=== PATIENT | male | born 1995 | race Hispanic/Latino ===

== ENCOUNTER 2018-06-10 14:03 | Emergency (ER) | payer BC ==
[2018-06-10] MEDS ORDERED: ONDANSETRON 4 MG/2 ML VIAL ONE (14:51)
[2018-06-10] MEDS ORDERED: NA CHLORIDE 0.9% 1,000 ML ONE (14:51)
[2018-06-10 14:56] LABS: Urine Blood 2+ (NEG); Urine Glucose NEGATIVE (NEG); Urine Protein 1+ (NEG); Urine Specific Gravity 1.025 (1.005-1.030); Urine pH 5.5 (5.0-7.0)
[2018-06-10 15:13] LABS: Absolute Lymphocytes (CBC) 0.8 K/uL (0.7-4.9); Absolute Monocytes 0.8 K/uL (0.1-1.3); Absolute Neutrophil 4.9 K/uL (1.8-8.0); Basophils % 0.5 % (0-1.3); Eosinophils % 0.1 % (0-4.4); Hematocrit 38.4 % (39.6-49.0); Lymphocytes % 12.2 % (15.3-44.8); MCH 27.7 pg (27.0-35.0); MCV 82.8 fL (80-100); MPV 8.7 fL (7.6-11.3); Monocytes % 11.9 % (3.3-12.3); RBC Red Blood Cell Count 4.64 M/uL (4.33-5.43)
[2018-06-10 15:15] LABS: Urine Bacteria <20 /HPF (NONE SEEN); Urine Culture Reflex Order REFLEXED; Urine RBC <5 /HPF (NONE SEEN)
[2018-06-10 15:21] LABS: Albumin 3.5 g/dL (3.4-5.0); Bilirubin Direct 0.1 mg/dL (0-0.2); Bilirubin Total 0.3 mg/dL (0.2-1.0); Potassium 3.2 mmol/L (3.5-5.1); Protein, Total 6.9 g/dL (6.4-8.2)
--- NOTE | 2018-06-10 15:37 | RAD REPORT ---
EXAM DESCRIPTION: CT - Abdomen Pelvis W Contrast - 06/10/2018 3:17 pm CLINICAL HISTORY: Abdominal pain with nausea. COMPARISON: 2016 TECHNIQUE: Computed axial tomography of the abdomen pelvis was obtained. 100 cc Isovue-300 was admin istered intravenously. Oral contrast was not requested which limits evaluation of bowel. All CT scans are performed using dose optimization technique as appropriate and may include automated exposure control or mA/KV adjustment according to patient size. FINDINGS: The liver, spleen, pancreas, adrenal and kidneys appear unremarkable. There is no evidence of diverticulitis. An abnormal appendix is not visualized Fluid is present within nondilated small bowel IMPRESSION: Fluid within nondilated small bowel is nonspecific but may indicate an enteritis No acute abnormality is displayed.
--- NOTE | 2018-06-10 16:27 | ER ---
Nurse's Notes [facility] Name: Bobo Monroe Age: 23 yrs Sex: Male : 1995 Arrival Date: 06/10/2018 Time: 14:07 Bed 13 Private MD: Diagnosis: Vomiting;Other abdominal pain;Urinary tract infection, site not specified Presentation: 06/10 14:08 Presenting complaint: Patient states: "Yesterday I threw up, lately my body has been aj1 getting weakened. I had a fever (100.6) yesterday. I haven't eaten anything" Reports abdominal pain, headache. Patient states that he has not thrown up today. States that his step-daughter has recently been ill with a stomach bug. Transition of care: patient was not received from another setting of care. Onset of symptoms was June 09, 2018. Risk Assessment: Do you want to hurt yourself or someone else? Patient reports no desire to harm self or others. Initial Sepsis Screen: Does the patient meet any 2 criteria? No. Patient's initial sepsis screen is negative. Does the patient have a suspected source of infection? No. Patient's initial sepsis screen is negative. Care prior to arrival: None. 14:08 Method Of Arrival: Ambulatory aj1 14:08 Acuity: BAKARI 3 aj1 Triage Assessment: 14:13 General: Appears in no apparent distress. comfortable, Behavior is calm, cooperative, aj1 appropriate for age. Pain: Complains of pain in umbilical area Pain currently is 6 out of 10 on a pain scale. at worst was 10 out of 10 on a pain scale. Is intermittent. Neuro: Level of Consciousness is awake, alert, obeys commands. Cardiovascular: Patient's skin is warm and dry. Respiratory: Airway is patent Respiratory effort is even, unlabored, Respiratory pattern is regular, symmetrical. GI: Abdomen is flat, non-distended, Reports lower abdominal pain, nausea, vomiting. Derm: Skin is pink, warm \\T\\ dry. normal. Historical: - Allergies: 14:13 No Known Allergies; aj1 - Home Meds: 14:13 None [Active]; aj1 - PMHx: 14:13 None; aj1 - PSHx: 14:13 None; aj1 - Immunization history:: Flu vaccine is not up to date. - Social history:: Smoking status: Patient uses tobacco products, denies chronic smoking, but will smoke occasionally. - Ebola Screening: : Patient denies travel to an Ebola-affected area in the 21 days before illness onset. Screenin:32 Abuse screen: Denies threats or abuse. Nutritional screening: No deficits noted. tw2 Nutritional screening: No deficits noted. Tuberculosis screening: No symptoms or risk factors identified. Fall Risk None identified. Assessment: 14:30 General: Appears in no apparent distress. slender, Behavior is calm, cooperative. Pain: tw2 Complains of pain in abdomen. Neuro: Level of Consciousness is awake, alert, obeys commands, Oriented to person, place, time, situation. Cardiovascular: Denies chest pain, shortness of breath, Heart tones S1 S2 Capillary refill < 3 seconds Patient's skin is warm and dry. Respiratory: Airway is patent Respiratory effort is even, unlabored, Respiratory pattern is regular, symmetrical, Breath sounds are clear bilaterally. GI: Abdomen is flat, Bowel sounds present X 4 quads. Abd is soft X 4 quads Reports nausea, vomiting. : No signs and/or symptoms were reported regarding the genitourinary system. EENT: No signs and/or symptoms were reported regarding the EENT system. Derm: Skin is intact, is healthy with good turgor, Skin temperature is warm. Musculoskeletal: Circulation, motion, and sensation intact. Capillary refill < 3 seconds, Range of motion: intact in all extremities. 15:32 Reassessment: Patient appears in no apparent distress at this time. No changes from tw2 previously documented assessment. Patient and/or family updated on plan of care and expected duration. Pain level reassessed. Patient is alert, oriented x 3, equal unlabored respirations, skin warm/dry/pink. 16:16 Reassessment: Patient appears in no apparent distress at this time. No changes from tw2 previously documented assessment. Patient and/or family updated on plan of care and expected duration. Pain level reassessed. Patient is alert, oriented x 3, equal unlabored respirations, skin warm/dry/pink. 16:39 Reassessment: Patient appears in no apparent distress at this time. Patient and/or tw2 family updated on plan of care and expected duration. Pain level reassessed. Patient is alert, oriented x 3, equal unlabored respirations, skin warm/dry/pink. Patient states feeling better. Patient states symptoms have improved. Vital Signs: 14:13 BP 129 / 84; Pulse 84; Resp 18; Temp 99.6(TE); Pulse Ox 98% on R/A; Height 5 ft. 8 in. aj1 (172.72 cm) (R); Pain 6/10; 15:32 BP 108 / 56; Pulse 70; Resp 17; Pulse Ox 98% on R/A; tw2 16:16 BP 109 / 42; Pulse 61; Resp 17; Pulse Ox 100% on R/A; tw2 ED Course: 14:07 Patient arrived in ED. rg4 14:12 Triage completed. aj1 14:13 Arm band placed on Patient placed in an exam room. aj1 14:15 Elysia Velazquez, NIHARIKA is Primary Nurse. tw2 14:22 Jung Lomeli PA is PHCP. jmm 14:22 Mohit Almodovar MD is Attending Physician. jmm 14:31 Bed in low position. Call light in reach. Pulse ox on. NIBP on. tw2 14:50 No provider procedures requiring assistance completed. Inserted saline lock: 20 gauge tw2 in right antecubital area, using aseptic technique. Blood collected. 14:58 Urine Microscopic Only Sent. tw2 15:17 CT Abd/Pelvis - W/Contrast In Process Unspecified. EDMS 15:22 CT completed. Patient moved to CT via wheelchair. Patient moved back from [place]. [place] 16:39 IV discontinued, intact, bleeding controlled, No redness/swelling at site. Pressure tw2 dressing applied. Administered Medications: 14:50 Drug: Zofran 4 mg Route: IVP; Site: right antecubital; tw2 15:33 Follow up: Response: No adverse reaction tw2 14:57 Drug: NS 0.9% 1000 ml Route: IV; Rate: 1 bolus; Site: right antecubital; tw2 16:27 Follow up: Response: No adverse reaction; IV Status: Completed infusion; IV Intake: tw2 1000ml Intake: 16:27 IV: 1000ml; Total: 1000ml. tw2 Outcome: 16:26 Discharge ordered by . jmm 16:38 Discharged to home ambulatory, with friend. tw2 16:38 Condition: stable 16:38 Discharge instructions given to patient, friend, Instructed on discharge instructions, follow up and referral plans. medication usage, Demonstrated understanding of instructions, follow-up care, medications, Prescriptions given X 2. 16:39 Patient left the ED. tw2 Signatures: Dispatcher [employer] EDRegi Foy RN RN aj1 Jung Lomeli PA PA jmm Wise, Tara, RN RN tw2 Christa Shaikh4 Lauro Quintana
--- NOTE | 2018-06-10 16:27 | EDPHYS ---
Physician Documentation [facility] Name: Bobo Monroe Age: 23 yrs Sex: Male : 1995 Arrival Date: 06/10/2018 Time: 14:07 Bed 13 Private MD: ED Physician Mohit Almodovar HPI: 06/10 14:42 This 23 yrs old Male presents to ER via Ambulatory with complaints of TROUBLE jmm SLEEPING, Abdominal Pain. 14:42 The patient presents with abdominal pain in the periumbilical area. Onset: The jmm symptoms/episode began/occurred gradually, 2 day(s) ago. The symptoms do not radiate. Associated signs and symptoms: Pertinent positives: nausea and vomiting. The symptoms are described as achy. This is a 23 year old male with no chronic medical conditions that presents to the ED with abdominal pain, vomiting beginning 2 days ago. Patient states his step daughter has similar symptoms. Denies recent abx use, recent travel. . Historical: - Allergies: 14:13 No Known Allergies; aj1 - Home Meds: 14:13 None [Active]; aj1 - PMHx: 14:13 None; aj1 - PSHx: 14:13 None; aj1 - Immunization history:: Flu vaccine is not up to date. - Social history:: Smoking status: Patient uses tobacco products, denies chronic smoking, but will smoke occasionally. - Ebola Screening: : Patient denies travel to an Ebola-affected area in the 21 days before illness onset. ROS: 14:42 Constitutional: Negative for fever, chills, and weight loss, Cardiovascular: Negative jmm for chest pain, palpitations, and edema, Respiratory: Negative for shortness of breath, cough, wheezing, and pleuritic chest pain. 14:42 MS/Extremity: Negative for injury and deformity, Skin: Negative for injury, rash, and discoloration, Neuro: Negative for headache, weakness, numbness, tingling, and seizure. 14:42 Abdomen/GI: Positive for abdominal pain, nausea and vomiting. 14:42 Back: Negative for pain at rest, pain with movement. 14:42 All other systems are negative. Exam: 14:42 Head/Face: atraumatic. Chest/axilla: Normal chest wall appearance and motion. jmm Cardiovascular: Regular rate and rhythm. No edema appreciated Respiratory: Normal respirations, no respiratory distress appreciated 14:42 Constitutional: The patient appears in no acute distress, alert, awake. 14:42 Abdomen/GI: Inspection: abdomen appears normal, Bowel sounds: normal, Palpation: soft, mild abdominal tenderness, in the umbilical area. 14:42 Musculoskeletal/extremity: ROM: no acute changes, intact in all extremities. 14:42 Skin: Appearance: Color: normal in color, Temperature: 14:42 Neuro: Orientation: is normal, Mentation: is normal, Memory: is normal. 14:42 Psych: Behavior/mood is pleasant, cooperative. Vital Signs: 14:13 BP 129 / 84; Pulse 84; Resp 18; Temp 99.6(TE); Pulse Ox 98% on R/A; Height 5 ft. 8 in. aj1 (172.72 cm) (R); Pain 6/10; 15:32 BP 108 / 56; Pulse 70; Resp 17; Pulse Ox 98% on R/A; tw2 16:16 BP 109 / 42; Pulse 61; Resp 17; Pulse Ox 100% on R/A; tw2 MDM: 14:42 [facility] medically screened. [facility] 16:24 Data reviewed: vital signs, nurses notes, radiologic studies, plain films. Data jm reviewed: radiologic studies, CT scan. Counseling: I had a detailed discussion with the patient and/or guardian regarding: the historical points, exam findings, and any diagnostic results supporting the discharge/admit diagnosis, lab results, radiology results. Response to treatment: the patient's symptoms have markedly improved after treatment. ED course: Patient tolerates PO in the ED. Patient given early appendicitis return precautions. Patient understood and agrees with the plan of care. . 06/10 14:37 Order name: Urine Dipstick--Ancillary (enter results); Complete Time: 15:01 06/10 14:43 Order name: Amylase, Serum; Complete Time: 15:24 [facility] 06/10 14:43 Order name: Basic Metabolic Panel; Complete Time: 15:24 [facility] 06/10 14:43 Order name: CBC with Diff; Complete Time: 15:24 [facility] 06/10 14:43 Order name: Creatinine for Radiology; Complete Time: 15:24 [facility] 06/10 14:43 Order name: Hepatic Function; Complete Time: 15:24 [facility] 06/10 14:43 Order name: Lipase; Complete Time: 15:24 [facility] 06/10 14:43 Order name: Urine Microscopic Only; Complete Time: 15:24 [facility] 06/10 14:43 Order name: IV Saline Lock; Complete Time: 14:58 [facility] 06/10 14:43 Order name: Labs collected and sent; Complete Time: 14:58 [facility] 06/10 14:43 Order name: CT Abd/Pelvis - W/Contrast; Complete Time: 15:44 [facility] 06/10 15:17 Order name: Urine Culture [facility] 06/10 14:43 Order name: Urine Dipstick-Ancillary (obtain specimen); Complete Time: 14:46 [facility] Administered Medications: 14:50 Drug: Zofran 4 mg Route: IVP; Site: right antecubital; tw2 15:33 Follow up: Response: No adverse reaction tw2 14:57 Drug: NS 0.9% 1000 ml Route: IV; Rate: 1 bolus; Site: right antecubital; tw2 16:27 Follow up: Response: No adverse reaction; IV Status: Completed infusion; IV Intake: tw2 1000ml Disposition: 06/11 14:30 Co-signature as Attending Physician, Mohit Almodovar MD I agree with the assessment and juan plan of care. Disposition: 06/10/18 16:26 Discharged to Home. Impression: Vomiting, Other abdominal pain, Urinary tract infection, site not specified. - Condition is Stable. - Discharge Instructions: Urinary Tract Infection, Adult, Vomiting, Adult. - Prescriptions for Zofran ODT 4 mg Oral tablet,disintegrating - place 1 tablet by TRANSLINGUAL route every 4 hours; 20 tablet. Cipro 500 mg Oral Tablet - take 1 tablet by ORAL route every 12 hours for 7 days; 14 tablet. - Medication Reconciliation Form, Thank You Letter, Antibiotic Education, Prescription Opioid Use form. - Follow up: Private Physician; When: 2 - 3 days; Reason: Continuance of care. Signatures: Dispatcher [employer] Regi Ho, NIHARIKA RN ajMohit March MD MD cha Mickail, Joel, PA PA jmm Wise, Tara, RN RN tw2 Corrections: (The following items were deleted from the chart) 06/10 16:39 16:26 06/10/2018 16:26 Discharged to Home. Impression: Vomiting; Other abdominal pain; tw2 Urinary tract infection, site not specified. Condition is Stable. Forms are Medication Reconciliation Form, Thank You Letter, Antibiotic Education, Prescription Opioid Use. Follow up: Private Physician; When: 2 - 3 days; Reason: Continuance of care. monique
[2018-06-10 16:47] VITALS: TEMP 99.6
[2018-06-10 16:49] VITALS: BP 109/42; O2SAT 100
== END 2018-06-10 16:39 | disposition home or self-care (01) ==
LOC: ER 14:03
DX: R11.10 Vomiting, unspecified (principal); N39.0 Urinary tract infection, site not specified; F17.200 Nicotine dependence, unspecified, uncomplicated
CPT/HCPCS: 36415; 74177; 80048; 80076; 81003; 81015; 82150; 83690; 85025; 87086; 87088; 96361; 96374; 99284; J2405; J7030; Q9967

== ENCOUNTER 2018-06-12 02:32 | Emergency (ER) | payer BC ==
--- NOTE | 2018-06-12 03:14 | EDPHYS ---
Physician Documentation [facility] Name: Bobo Monroe Age: 23 yrs Sex: Male : 1995 Arrival Date: 06/12/2018 Time: 02:36 Bed 14 Private MD: ED Physician Mohit Almodovar HPI: 06/12 03:10 This 23 yrs old Male presents to ER via Ambulatory with complaints of Sore juan Throat. 03:10 The patient presents with sore throat. The patient describes throat pain as burning, juan constant. Onset: The symptoms/episode began/occurred 2 day(s) ago. Severity of symptoms: At their worst the symptoms were mild, moderate, in the emergency department the symptoms are unchanged. Modifying factors: The symptoms are alleviated by nothing, the symptoms are aggravated by foods, swallowing. Associated signs and symptoms: The patient has no apparent associated signs or symptoms. The patient has not experienced similar symptoms in the past. Historical: - Allergies: 02:57 No Known Allergies; fc - Home Meds: 02:57 None [Active]; fc - PMHx: 02:57 None; fc - PSHx: 02:57 None; fc - Immunization history:: Last tetanus immunization: up to date. - Social history:: Smoking status: Patient uses tobacco products, smokes one-half pack cigarettes per day, Patient/guardian denies using alcohol, street drugs. - Ebola Screening: : Patient negative for fever greater than or equal to 101.5 degrees Fahrenheit, and additional compatible Ebola Virus Disease symptoms Patient denies exposure to infectious person Patient denies travel to an Ebola-affected area in the 21 days before illness onset. - Family history:: not pertinent. ROS: 03:10 Constitutional: Negative for fever, chills, and weight loss, Eyes: Negative for injury, juan pain, redness, and discharge, Neck: Negative for injury, pain, and swelling, Cardiovascular: Negative for chest pain, palpitations, and edema, Respiratory: Negative for shortness of breath, cough, wheezing, and pleuritic chest pain, Abdomen/GI: Negative for abdominal pain, nausea, vomiting, diarrhea, and constipation, Back: Negative for injury and pain, : Negative for injury, bleeding, discharge, and swelling, MS/Extremity: Negative for injury and deformity, Skin: Negative for injury, rash, and discoloration, Neuro: Negative for headache, weakness, numbness, tingling, and seizure, Psych: Negative for depression, anxiety, suicide ideation, homicidal ideation, and hallucinations, Allergy/Immunology: Negative for hives, rash, and allergies, Endocrine: Negative for neck swelling, polydipsia, polyuria, polyphagia, and marked weight changes, Hematologic/Lymphatic: Negative for swollen nodes, abnormal bleeding, and unusual bruising. 03:10 ENT: Positive for difficulty handling secretions, difficulty swallowing. Exam: 03:10 Constitutional: This is a well developed, well nourished patient who is awake, alert, juan and in no acute distress. Head/Face: Normocephalic, atraumatic. Eyes: Pupils equal round and reactive to light, extra-ocular motions intact. Lids and lashes normal. Conjunctiva and sclera are non-icteric and not injected. Cornea within normal limits. Periorbital areas with no swelling, redness, or edema. Neck: Trachea midline, no thyromegaly or masses palpated, and no cervical lymphadenopathy. Supple, full range of motion without nuchal rigidity, or vertebral point tenderness. No Meningismus. Chest/axilla: Normal chest wall appearance and motion. Nontender with no deformity. No lesions are appreciated. Cardiovascular: Regular rate and rhythm with a normal S1 and S2. No gallops, murmurs, or rubs. Normal PMI, no JVD. No pulse deficits. Respiratory: Lungs have equal breath sounds bilaterally, clear to auscultation and percussion. No rales, rhonchi or wheezes noted. No increased work of breathing, no retractions or nasal flaring. Abdomen/GI: Soft, non-tender, with normal bowel sounds. No distension or tympany. No guarding or rebound. No evidence of tenderness throughout. Back: No spinal tenderness. No costovertebral tenderness. Full range of motion. Male : Normal genitalia with no discharge or lesions. Skin: Warm, dry with normal turgor. Normal color with no rashes, no lesions, and no evidence of cellulitis. MS/ Extremity: Pulses equal, no cyanosis. Neurovascular intact. Full, normal range of motion. Neuro: Awake and alert, GCS 15, oriented to person, place, time, and situation. Cranial nerves II-XII grossly intact. Motor strength 5/5 in all extremities. Sensory grossly intact. Cerebellar exam normal. Normal gait. Psych: Awake, alert, with orientation to person, place and time. Behavior, mood, and affect are within normal limits. 03:10 ENT: 03:10 ENT: Posterior pharynx: Tonsils: bilaterally enlarged, with erythema, Uvula: normal, midline, swelling, is not appreciated, erythema, that is mild, exudate, is not appreciated. Vital Signs: 02:57 BP 136 / 91; Pulse 73; Resp 20; Temp 98.8(O); Pulse Ox 97% on R/A; Weight 61.23 kg (R); fc Height 5 ft. 9 in. (175.26 cm) (R); Pain 0/10; 02:57 Body Mass Index 19.94 (61.23 kg, 175.26 cm) fc MDM: 03:02 Patient medically screened. [facility] 03:12 Data reviewed: vital signs, nurses notes. [facility] Administered Medications: No medications were administered Disposition: 06/12/18 03:13 Discharged to Home. Impression: Acute tonsillitis. - Condition is Fair. - Discharge Instructions: Tonsillitis, Tonsillitis, [id number]. - Prescriptions for Amoxicillin 500 mg Oral Capsule - take 1 capsule by ORAL route every 8 hours for 10 days; 30 tablet. - Medication Reconciliation Form, Thank You Letter, Antibiotic Education, Prescription Opioid Use form. - Follow up: Private Physician; When: 2 - 3 days; Reason: Recheck today's complaints, Continuance of care, Re-evaluation by your physician. - Problem is new. - Symptoms have improved. Signatures: Kayleigh Donaldson RN RN aa1 Mohit Almodovar MD MD cha Chretien, Felicia, RN RN fc Corrections: (The following items were deleted from the chart) 03:27 03:13 06/12/2018 03:13 Discharged to Home. Impression: Acute tonsillitis. Condition is aa1 Fair. Forms are Medication Reconciliation Form, Thank You Letter, Antibiotic Education, Prescription Opioid Use. Follow up: Private Physician; When: 2 - 3 days; Reason: Recheck today's complaints, Continuance of care, Re-evaluation by your physician. Problem is new. Symptoms have improved. juan
--- NOTE | 2018-06-12 03:14 | ER ---
Nurse's Notes [facility] Name: Bobo Monroe Age: 23 yrs Sex: Male : 1995 Arrival Date: 06/12/2018 Time: 02:36 Bed 14 Private MD: Diagnosis: Acute tonsillitis Presentation: 06/12 02:55 Presenting complaint: Patient states: that he was here 2 days ago and dx with UTI and fc virus. Was given Cipro, but he has not gotten it filled yet. He now has a pain with swallowing and states that there is white patches on his tonsils. Transition of care: patient was not received from another setting of care. Onset of symptoms was June 10, 2018. Risk Assessment: Do you want to hurt yourself or someone else? Patient reports no desire to harm self or others. Initial Sepsis Screen: Does the patient meet any 2 criteria? No. Patient's initial sepsis screen is negative. Does the patient have a suspected source of infection? No. Patient's initial sepsis screen is negative. Care prior to arrival: None. 02:55 Method Of Arrival: Ambulatory 02:55 Acuity: BAKARI 4 fc Historical: - Allergies: 02:57 No Known Allergies; fc - Home Meds: 02:57 None [Active]; fc - PMHx: 02:57 None; fc - PSHx: 02:57 None; fc - Immunization history:: Last tetanus immunization: up to date. - Social history:: Smoking status: Patient uses tobacco products, smokes one-half pack cigarettes per day, Patient/guardian denies using alcohol, street drugs. - Ebola Screening: : Patient negative for fever greater than or equal to 101.5 degrees Fahrenheit, and additional compatible Ebola Virus Disease symptoms Patient denies exposure to infectious person Patient denies travel to an Ebola-affected area in the 21 days before illness onset. - Family history:: not pertinent. Screenin:58 Abuse screen: Denies threats or abuse. Nutritional screening: No deficits noted. fc Tuberculosis screening: No symptoms or risk factors identified. Fall Risk None identified. Assessment: 03:00 General: Appears in no apparent distress. comfortable, Behavior is calm, cooperative, aa1 appropriate for age. Pain: Complains of pain in throat. Neuro: Level of Consciousness is awake, alert, obeys commands, Oriented to person, place, time, situation, Speech is normal. Respiratory: Airway is patent Respiratory effort is even, unlabored, Respiratory pattern is regular, symmetrical, Breath sounds are clear bilaterally. GI: No signs and/or symptoms were reported involving the gastrointestinal system. : No signs and/or symptoms were reported regarding the genitourinary system. EENT: Throat is reddened has enlarged tonsils bilaterally. Derm: Skin is intact, is healthy with good turgor, Skin is pink, warm \T\ dry. 03:25 Reassessment: Patient appears in no apparent distress at this time. Patient is alert, aa1 oriented x 3, equal unlabored respirations, skin warm/dry/pink. Discussed d/c \T\ f/u instructions with pt; denies questions or concerns at this time. Vital Signs: 02:57 BP 136 / 91; Pulse 73; Resp 20; Temp 98.8(O); Pulse Ox 97% on R/A; Weight 61.23 kg (R); fc Height 5 ft. 9 in. (175.26 cm) (R); Pain 0/10; 02:57 Body Mass Index 19.94 (61.23 kg, 175.26 cm) ED Course: 02:36 Patient arrived in ED. al2 02:57 Triage completed. 02:57 Arm band placed on Patient placed in an exam room, on a stretcher. 02:58 Patient has correct armband on for positive identification. Bed in low position. Call light in reach. Side rails up X 1. 03:02 Mohit Almodovar MD is Attending Physician. [facility] 03:25 Kayleigh Donaldson RN is Primary Nurse. aa1 03:27 No provider procedures requiring assistance completed. Patient did not have IV access aa1 during this emergency room visit. Administered Medications: No medications were administered Outcome: 03:13 Discharge ordered by . juan 03:27 Discharged to home ambulatory. aa1 03:27 Condition: good 03:27 Discharge instructions given to patient, Instructed on discharge instructions, follow up and referral plans. medication usage, Demonstrated understanding of instructions, follow-up care, medications, Prescriptions given X 1. 03:27 Patient left the ED. aa1 Signatures: Kayleigh Donaldson RN RN aa1 Mohit Almodovar MD MD cha Chretien, Felicia, RN RN fc Love, Angelica al2
[2018-06-12 03:31] VITALS: BP 136/91; TEMP 98.8; O2SAT 97
== END 2018-06-12 03:27 | disposition home or self-care (01) ==
LOC: ER 02:32
DX: J03.90 Acute tonsillitis, unspecified (principal); F17.210 Nicotine dependence, cigarettes, uncomplicated
CPT/HCPCS: 99282

== ENCOUNTER 2018-07-24 14:04 | Emergency (ER) | payer BC ==
--- NOTE | 2018-07-24 14:39 | ER ---
Nurse's Notes [facility] Name: Bobo Monroe Age: 23 yrs Sex: Male : 1995 Arrival Date: 07/24/2018 Time: 14:06 Bed 12 Private MD: None, None Diagnosis: Rash and other nonspecific skin eruption Presentation: 07/24 14:16 Presenting complaint: Patient states: rash started 2 months ago. Transition of care: sv patient was not received from another setting of care. Onset of symptoms was May 2018. Care prior to arrival: None. 14:16 Method Of Arrival: Ambulatory sv 14:16 Acuity: BAKARI 5 sv 15:17 Risk Assessment: Do you want to hurt yourself or someone else? Patient reports no rv desire to harm self or others. Initial Sepsis Screen: Does the patient meet any 2 criteria? No. Patient's initial sepsis screen is negative. Does the patient have a suspected source of infection? No. Patient's initial sepsis screen is negative. Historical: - Allergies: 14:16 No Known Allergies; sv - Immunization history:: Adult Immunizations up to date. - Social history:: Smoking status: Patient uses tobacco products, smokes one-half pack cigarettes per day. - Ebola Screening: : No symptoms or risks identified at this time. Screenin:16 Abuse screen: Denies threats or abuse. Denies injuries from another. Nutritional rv screening: No deficits noted. Tuberculosis screening: No symptoms or risk factors identified. Fall Risk None identified. Assessment: 15:15 General: Appears in no apparent distress. comfortable, Behavior is calm, cooperative. rv Pain: Denies pain. Neuro: Level of Consciousness is awake, alert, obeys commands, Oriented to person, place, time, situation. Cardiovascular: Capillary refill < 3 seconds. Respiratory: Airway is patent. GI: No signs and/or symptoms were reported involving the gastrointestinal system. : No signs and/or symptoms were reported regarding the genitourinary system. EENT: No signs and/or symptoms were reported regarding the EENT system. Derm: Rash noted that is itchy, on GENERALIZED. Vital Signs: 14:17 BP 144 / 101; Pulse 76; Resp 18; Temp 97.6; Pulse Ox 100% ; Weight 63.5 kg; Height 5 sv ft. 9 in. (175.26 cm); Pain 0/10; 14:17 Body Mass Index 20.67 (63.50 kg, 175.26 cm) sv ED Course: 14:06 Patient arrived in ED. mr 14:07 None, None is Private Physician. mr 14:10 Sam Hooks MD is Attending Physician. kdr 14:16 Triage completed. sv 14:17 Arm band placed on right wrist. sv 14:38 None, None is Referral Physician. kdr 15:17 Patient has correct armband on for positive identification. Call light in reach. Pulse rv ox on. NIBP on. 15:17 No provider procedures requiring assistance completed. Patient did not have IV access rv during this emergency room visit. Administered Medications: 15:14 Drug: Benadryl 25 mg Route: PO; rv 15:15 Follow up: Response: Medication administered at discharge. rv 15:14 Drug: SOLU-Medrol 125 mg Route: IM; Site: right deltoid; rv 15:15 Follow up: Response: Medication administered at discharge. rv 15:14 Drug: Pepcid 20 mg Route: PO; rv 15:14 Follow up: Response: Medication administered at discharge. rv Outcome: 14:38 Discharge ordered by . kdr 15:17 Discharged to home ambulatory. rv 15:17 Condition: good 15:17 Discharge instructions given to patient, Instructed on discharge instructions, follow up and referral plans. medication usage, Demonstrated understanding of instructions, follow-up care, medications, Prescriptions given X 3. 15:18 Patient left the ED. rv Signatures: Edith Thompson RN RN sv Sam Hooks MD MD [facility] Jazzy Price Link Ruff RN RN rv Corrections: (The following items were deleted from the chart) 14:18 14:17 Resp 18bpm; Pulse Ox 100%; Temp 97.6F; 63.5 kg; Height 5 ft. 9 in.; BMI: 20.6; sv Pain 0/10; sv
--- NOTE | 2018-07-24 14:39 | EDPHYS ---
Physician Documentation [facility] Name: Bobo Monroe Age: 23 yrs Sex: Male : 1995 Arrival Date: 07/24/2018 Time: 14:06 Bed 12 Private MD: None, None ED Physician Sam Hooks HPI: 07/24 21:14 This 23 yrs old Male presents to ER via Ambulatory with complaints of Rash. kdr 21:14 The patient's rash thought to be caused by an unknown cause. The rash is located on the kdr body diffusely. The rash can be described as macular, papular, pustular, raised. Onset: The symptoms/episode began/occurred gradually, 2 month(s) ago. Associated signs and symptoms: Pertinent positives: burning sensation, itching, Pain Pertinent negatives: None. Severity of symptoms: At their worst the symptoms were mild moderate just prior to arrival, in the emergency department the symptoms are unchanged. The patient has not experienced similar symptoms in the past. The patient has not recently seen a physician. Historical: - Allergies: 14:16 No Known Allergies; sv - Immunization history:: Adult Immunizations up to date. - Social history:: Smoking status: Patient uses tobacco products, smokes one-half pack cigarettes per day. - Ebola Screening: : No symptoms or risks identified at this time. ROS: 21:14 Constitutional: Negative for fever, chills, and weight loss, Eyes: Negative for injury, kdr pain, redness, and discharge, ENT: Negative for injury, pain, and discharge, Neck: Negative for injury, pain, and swelling, Cardiovascular: Negative for chest pain, palpitations, and edema, Respiratory: Negative for shortness of breath, cough, wheezing, and pleuritic chest pain, Abdomen/GI: Negative for abdominal pain, nausea, vomiting, diarrhea, and constipation, Back: Negative for injury and pain, : Negative for injury, bleeding, discharge, and swelling, MS/Extremity: Negative for injury and deformity, Neuro: Negative for headache, weakness, numbness, tingling, and seizure activity. Psych: Negative for depression, anxiety, suicide ideation, homicidal ideation, and hallucinations, Allergy/Immunology: Negative for hives, rash, and allergies, Endocrine: Negative for neck swelling, polydipsia, polyuria, polyphagia, and marked weight changes, Hematologic/Lymphatic: Negative for swollen nodes, abnormal bleeding, and unusual bruising. 21:14 Skin: Positive for rash. Exam: 21:14 Constitutional: This is a well developed, well nourished patient who is awake, alert, kdr and in no acute distress. 21:14 Skin: rash a mild rash is noted, rash can be described as erythematous, macular, papular, raised, vesicular. Vital Signs: 14:17 BP 144 / 101; Pulse 76; Resp 18; Temp 97.6; Pulse Ox 100% ; Weight 63.5 kg; Height 5 sv ft. 9 in. (175.26 cm); Pain 0/10; 14:17 Body Mass Index 20.67 (63.50 kg, 175.26 cm) sv MDM: 14:38 Patient medically screened. kdr 21:14 Data reviewed: vital signs, nurses notes. Counseling: I had a detailed discussion with kdr the patient and/or guardian regarding: the historical points, exam findings, and any diagnostic results supporting the discharge/admit diagnosis, the need for outpatient follow up. Administered Medications: 15:14 Drug: Benadryl 25 mg Route: PO; rv 15:15 Follow up: Response: Medication administered at discharge. rv 15:14 Drug: SOLU-Medrol 125 mg Route: IM; Site: right deltoid; rv 15:15 Follow up: Response: Medication administered at discharge. rv 15:14 Drug: Pepcid 20 mg Route: PO; rv 15:14 Follow up: Response: Medication administered at discharge. rv Disposition: 18 14:38 Discharged to Home. Impression: Rash and other nonspecific skin eruption. - Condition is Stable. - Discharge Instructions: Rash, [id number], Allergies, [id number]. - Prescriptions for Benadryl 25 mg Oral Capsule - take 1 capsule by ORAL route every 6 hours As needed; 30 tablet. Pepcid 20 mg Oral Tablet - take 1 tablet by ORAL route every 12 hours for 10 days; 20 tablet. Medrol (Braydon) 4 mg Oral Tablets, Dose Pack - take 1 tablet by ORAL route as directed - follow package instructions; 1 packet. - Medication Reconciliation Form, Thank You Letter form. - Follow up: None, None; When: 2 - 3 days; Reason: If symptoms return, Further diagnostic work-up, Recheck today's complaints, Continuance of care, Re-evaluation by your physician. - Problem is an ongoing problem. - Symptoms are unchanged. Signatures: Edith Thompson RN RN Sam Hooks MD MD [facility] Link Ruff, RN RN rv Corrections: (The following items were deleted from the chart) 15:18 14:38 07/24/2018 14:38 Discharged to Home. Impression: Rash and other nonspecific skin rv eruption. Condition is Stable. Forms are Medication Reconciliation Form, Thank You Letter, Antibiotic Education, Prescription Opioid Use. Follow up: None None; When: 2 - 3 days; Reason: If symptoms return, Further diagnostic work-up, Recheck today's complaints, Continuance of care, Re-evaluation by your physician. Problem is an ongoing problem. Symptoms are unchanged. kdr
[2018-07-24] MEDS ORDERED: METHYLPREDNISOLONE 125 MG INJ ONE (15:11)
[2018-07-24] MEDS ORDERED: DIPHENHYDRAMINE 25 MG TAB/CAP ONE (15:11)
[2018-07-24] MEDS ORDERED: FAMOTIDINE 20 MG TAB ONE (15:12)
[2018-07-24 15:23] VITALS: BP 144/101; TEMP 97.6; O2SAT 100
== END 2018-07-24 15:18 | disposition home or self-care (01) ==
LOC: ER 14:04
DX: R21 Rash and other nonspecific skin eruption (principal); F17.210 Nicotine dependence, cigarettes, uncomplicated
CPT/HCPCS: 96372; 99283; J2930

== ENCOUNTER 2018-08-24 18:33 | Emergency (ER) | payer BC ==
--- NOTE | 2018-08-24 19:14 | ER ---
Nurse's Notes [facility] Name: Bobo Monroe Age: 23 yrs Sex: Male : 1995 Arrival Date: 08/24/2018 Time: 18:38 Bed 17 Private MD: Diagnosis: Rash and other nonspecific skin eruption Presentation: 08/24 18:44 Presenting complaint: Patient states: "I was seen here for a rash about a month ago and aa5 it's still not gone". Pt reports rash it's itchy. Transition of care: patient was not received from another setting of care. Onset of symptoms was August 2018. Risk Assessment: Do you want to hurt yourself or someone else? Patient reports no desire to harm self or others. Initial Sepsis Screen: Does the patient meet any 2 criteria? No. Patient's initial sepsis screen is negative. Does the patient have a suspected source of infection? No. Patient's initial sepsis screen is negative. Care prior to arrival: None. 18:44 Method Of Arrival: Ambulatory aa5 18:44 Acuity: BAKARI 5 aa5 Historical: - Allergies: 18:45 No Known Allergies; aa5 - PMHx: 18:45 None; aa5 - PSHx: 18:45 None; aa5 - Immunization history:: Adult Immunizations up to date. - Social history:: Smoking status: Patient/guardian denies using tobacco. - Ebola Screening: : No symptoms or risks identified at this time. Screenin:55 Abuse screen: Denies threats or abuse. Nutritional screening: No deficits noted. jb4 Tuberculosis screening: No symptoms or risk factors identified. 18:55 Fall Risk None identified. jb4 Assessment: 18:55 General: Appears in no apparent distress. comfortable, Behavior is calm, cooperative, jb4 appropriate for age. Pain: Denies pain. Neuro: Level of Consciousness is awake, alert, obeys commands, Oriented to person, place, time, situation. Cardiovascular: Patient's skin is warm and dry. Respiratory: Airway is patent Respiratory effort is even, unlabored, Respiratory pattern is regular, symmetrical. GI: Abdomen is flat, non-distended, Reports diarrhea, nausea, vomiting. : No signs and/or symptoms were reported regarding the genitourinary system. EENT: No signs and/or symptoms were reported regarding the EENT system. Derm: Skin is intact, Skin is pink, warm \\T\\ dry. Rash noted that is itchy, raised, on back, buttocks, pelvis, right calf and left calf. Musculoskeletal: Circulation, motion, and sensation intact. 19:36 Reassessment: Patient appears in no apparent distress at this time. Patient and/or jb4 family updated on plan of care and expected duration. Pain level reassessed. Patient is alert, oriented x 3, equal unlabored respirations, skin warm/dry/pink. Discussed D/c and F/u with pt, denies questions or concerns. Vital Signs: 18:45 BP 123 / 88; Pulse 80; Resp 18 S; Temp 97.8(TE); Pulse Ox 100% on R/A; Weight 61.23 kg aa5 (R); Height 5 ft. 9 in. (175.26 cm) (R); Pain 0/10; 19:36 BP 113 / 79; Pulse 77; Resp 16; Pulse Ox 99% on R/A; jb4 18:45 Body Mass Index 19.94 (61.23 kg, 175.26 cm) aa5 ED Course: 18:38 Patient arrived in ED. tw3 18:44 Triage completed. aa5 18:44 Arm band placed on. aa5 18:55 Raymundo Beckett, NIHARIKA is Primary Nurse. jb4 18:55 Patient has correct armband on for positive identification. Placed in gown. Bed in low jb4 position. Call light in reach. Side rails up X 1. Pulse ox on. NIBP on. 19:02 Raoul Moore NP is PHCP. pm1 19:02 Sam Hooks MD is Attending Physician. pm1 19:36 No provider procedures requiring assistance completed. Patient did not have IV access jb4 during this emergency room visit. Administered Medications: 19:30 Drug: Pepcid 20 mg Route: PO; jb4 19:31 Follow up: Response: No adverse reaction jb4 19:30 Drug: Benadryl 25 mg Route: PO; jb4 19:31 Follow up: Response: No adverse reaction jb4 19:30 Drug: SOLU-Medrol 125 mg Route: IM; Site: left gluteus; jb4 19:30 Follow up: Response: No adverse reaction jb4 Outcome: 19:13 Discharge ordered by . pm1 19:36 Discharged to home ambulatory. jb4 19:36 Condition: stable 19:36 Discharge instructions given to patient, Instructed on discharge instructions, follow up and referral plans. medication usage, Demonstrated understanding of instructions, follow-up care, medications, Prescriptions given X 3. 19:37 Patient left the ED. jb4 Signatures: Gail Schneider, RN RN aa5 Raoul Moore, SECURITY OFFICERS AND GUARDS SECURITY OFFICERS AND GUARDS pm1 Raymundo Beckett RN RN jb4 Jesse, Tania tw3 Corrections: (The following items were deleted from the chart) 19:15 16:55 General: Appears in no apparent distress. comfortable, Behavior is calm, jb4 cooperative, appropriate for age, jb4 19:15 16:55 Pain: Denies pain. jb4 jb4 19:15 16:55 Neuro: Level of Consciousness is awake, alert, obeys commands, Oriented to jb4 person, place, time, situation, jb4 19:15 16:55 Cardiovascular: Patient's skin is warm and dry. jb4 jb4 19:15 16:55 Respiratory: Airway is patent Respiratory effort is even, unlabored, Respiratory jb4 pattern is regular, symmetrical, jb4 19:15 16:55 GI: Abdomen is flat, non-distended, Reports diarrhea, nausea, vomiting, jb4 jb4 19:15 16:55 : No signs and/or symptoms were reported regarding the genitourinary system. [id number] 19:15 16:55 EENT: No signs and/or symptoms were reported regarding the EENT system. jb4 jb4 19:15 16:55 Derm: Skin is intact, Skin is pink, warm \\T\\ dry. Rash noted that is itchy, raised, jb4 on back, buttocks, pelvis, right calf and left calf jb4 19:15 16:55 Musculoskeletal: Circulation, motion, and sensation intact. jb4 jb4
--- NOTE | 2018-08-24 19:14 | EDPHYS ---
Physician Documentation [facility] Name: Bobo Monroe Age: 23 yrs Sex: Male : 1995 Arrival Date: 08/24/2018 Time: 18:38 Bed 17 Private MD: ED Physician Sam Hooks HPI: 08/24 19:12 This 23 yrs old Male presents to ER via Ambulatory with complaints of Rash. pm1 19:12 The patient's rash thought to be caused by an unknown cause. The rash is located on the pm1 body diffusely. The rash can be described as papular, raised, vesicular, itchy. Onset: The symptoms/episode began/occurred 1 month(s) ago. Associated signs and symptoms: Pertinent positives: itching, Pertinent negatives: burning sensation, difficulty breathing, fever, swelling of lips, swelling of throat, swelling of tongue, wheezing. Severity of symptoms: in the emergency department the symptoms are worse. Treatment given at home: None. The patient has experienced a previous episode. The patient has been recently seen at the [facility] Emergency Department, Seen here about 1 month ago and discharged home with steroid, Benadryl and Pepcid. Rash improved while he was on the medications but it started getting worse after he finished the medications. Historical: - Allergies: 18:45 No Known Allergies; aa5 - PMHx: 18:45 None; aa5 - PSHx: 18:45 None; aa5 - Immunization history:: Adult Immunizations up to date. - Social history:: Smoking status: Patient/guardian denies using tobacco. - Ebola Screening: : No symptoms or risks identified at this time. ROS: 19:12 Constitutional: Negative for fever, chills, and weight loss, Eyes: Negative for injury, pm1 pain, redness, and discharge, ENT: Negative for injury, pain, and discharge, Neck: Negative for injury, pain, and swelling, Cardiovascular: Negative for chest pain, palpitations, and edema, Respiratory: Negative for shortness of breath, cough, wheezing, and pleuritic chest pain, Abdomen/GI: Negative for abdominal pain, nausea, vomiting, diarrhea, and constipation, Back: Negative for injury and pain, : Negative for injury, bleeding, discharge, and swelling, MS/Extremity: Negative for injury and deformity. 19:12 Neuro: Negative for headache, weakness, numbness, tingling, and seizure. 19:12 Skin: Positive for rash, diffusely. Exam: 19:12 Constitutional: This is a well developed, well nourished patient who is awake, alert, pm1 and in no acute distress. Head/Face: Normocephalic, atraumatic. Eyes: Pupils equal round and reactive to light, extra-ocular motions intact. Lids and lashes normal. Conjunctiva and sclera are non-icteric and not injected. Cornea within normal limits. Periorbital areas with no swelling, redness, or edema. ENT: Nares patent. No nasal discharge, no septal abnormalities noted. Tympanic membranes are normal and external auditory canals are clear. Oropharynx with no redness, swelling, or masses, exudates, or evidence of obstruction, uvula midline. Mucous membranes moist. Neck: Trachea midline, no thyromegaly or masses palpated, and no cervical lymphadenopathy. Supple, full range of motion without nuchal rigidity, or vertebral point tenderness. No Meningismus. Chest/axilla: Normal chest wall appearance and motion. Nontender with no deformity. No lesions are appreciated. Cardiovascular: Regular rate and rhythm with a normal S1 and S2. No gallops, murmurs, or rubs. No pulse deficits. Respiratory: Lungs have equal breath sounds bilaterally, clear to auscultation and percussion. No rales, rhonchi or wheezes noted. No increased work of breathing, no retractions or nasal flaring. Abdomen/GI: Soft, non-tender, with normal bowel sounds. No distension or tympany. No guarding or rebound. No evidence of tenderness throughout. Back: No spinal tenderness. No costovertebral tenderness. Full range of motion. 19:12 MS/ Extremity: Pulses equal, no cyanosis. Neurovascular intact. Full, normal range of motion. 19:12 Back: pain. 19:12 Skin: Appearance: normal except for affected area, consistent with allergy/contact dermatitis, and is diffusely located. 19:12 Neuro: Orientation: is normal, Motor: is normal, moves all fours. Vital Signs: 18:45 BP 123 / 88; Pulse 80; Resp 18 S; Temp 97.8(TE); Pulse Ox 100% on R/A; Weight 61.23 kg aa5 (R); Height 5 ft. 9 in. (175.26 cm) (R); Pain 0/10; 19:36 BP 113 / 79; Pulse 77; Resp 16; Pulse Ox 99% on R/A; jb4 18:45 Body Mass Index 19.94 (61.23 kg, 175.26 cm) aa5 MDM: 19:02 Patient medically screened. pm1 19:12 Data reviewed: vital signs. Data interpreted: Pulse oximetry: on room air is 100 %. pm1 Interpretation: normal. Counseling: I had a detailed discussion with the patient and/or guardian regarding: the historical points, exam findings, and any diagnostic results supporting the discharge/admit diagnosis, the need for outpatient follow up, to return to the emergency department if symptoms worsen or persist or if there are any questions or concerns that arise at home. Administered Medications: 19:30 Drug: Pepcid 20 mg Route: PO; jb4 19:31 Follow up: Response: No adverse reaction jb4 19:30 Drug: Benadryl 25 mg Route: PO; jb4 19:31 Follow up: Response: No adverse reaction jb4 19:30 Drug: SOLU-Medrol 125 mg Route: IM; Site: left gluteus; jb4 19:30 Follow up: Response: No adverse reaction jb4 Disposition: 08/25 06:25 Co-signature as Attending Physician, Sam Hooks MD I agree with the assessment and kdr plan of care. Disposition: 08/24/18 19:13 Discharged to Home. Impression: Rash and other nonspecific skin eruption. - Condition is Stable. - Discharge Instructions: Rash. - Prescriptions for Benadryl 25 mg Oral Capsule - take 1 capsule by ORAL route every 6 hours As needed; 30 tablet. Pepcid 20 mg Oral Tablet - take 1 tablet by ORAL route every 12 hours for 10 days; 20 tablet. Medrol (Braydon) 4 mg Oral Tablets, Dose Pack - take 1 tablet by ORAL route as directed - follow package instructions; 1 packet. - Medication Reconciliation Form, Thank You Letter form. - Follow up: Emergency Department; When: As needed; Reason: Worsening of condition. Follow up: Private Physician; When: 2 - 3 days; Reason: Recheck today's complaints, Continuance of care, Re-evaluation by your physician. - Problem is new. - Symptoms have improved. Signatures: Sam Hooks MD MD kdr Gail Schneider RN RN aa5 Raoul Moore, FABY CUSTOMER SALES REPRESENTATIVE pm1 Raymundo Beckett, RN RN jb4 Corrections: (The following items were deleted from the chart) 08/24 19:37 19:13 08/24/2018 19:13 Discharged to Home. Impression: Rash and other nonspecific skin jb4 eruption. Condition is Stable. Forms are Medication Reconciliation Form, Thank You Letter, Antibiotic Education, Prescription Opioid Use. Follow up: Emergency Department; When: As needed; Reason: Worsening of condition. Follow up: Private Physician; When: 2 - 3 days; Reason: Recheck today's complaints, Continuance of care, Re-evaluation by your physician. Problem is new. Symptoms have improved. pm1
[2018-08-24] MEDS ORDERED: DIPHENHYDRAMINE 25 MG TAB/CAP ONE (19:29)
[2018-08-24] MEDS ORDERED: METHYLPREDNISOLONE 125 MG INJ ONE (19:29)
[2018-08-24] MEDS ORDERED: FAMOTIDINE 20 MG TAB ONE (19:29)
[2018-08-24 19:41] VITALS: TEMP 97.8
[2018-08-24 19:42] VITALS: BP 113/79; O2SAT 99
== END 2018-08-24 19:37 | disposition home or self-care (01) ==
LOC: ER 18:33
DX: R21 Rash and other nonspecific skin eruption (principal)
CPT/HCPCS: 96372; 99283; J2930

== ENCOUNTER 2020-11-10 09:32 | Emergency (ER) | payer BC ==
--- OUTSIDE RECORDS SUMMARY | 2020-11-10 09:35 | XMS REPORT | Continuity of Care Document ---
:1995 Author Organization [facility] t Address [address] [place] [address] Care Team Providers Name Role Phone Lab, Fam Pob I Attending Clinician Unavailable Doctor Unassigned, Name Attending Clinician Unavailable Problems This patient has no known problems. Allergies, Adverse Reactions, Alerts This patient has no known allergies or adverse reactions. Medications This patient has no known medications. Procedures This patient has no known procedures. Encounters Start End Encounter Admission Attending Care Care Encounter Source Date/Time Date/Time Type Type Clinicians Facility Department ID 2020-05-18 2020-05-18 Laboratory Lab, Adc [facility] [id number] 07:53:11 08:13:11 Only Fam Pob I Health [id number] [place] [id number] [facility] [phone] [address] 2020-05-18 2020-05-18 Letter Doctor LETICIA [id number] 00:00:00 00:00:00 (Out) UnassignedJUANJOSE [id number] [place] [facility] [phone] [id number] Results This patient has no known results.
[2020-11-10] MEDS ORDERED: IBUPROFEN 400 MG TAB ONE (10:18)
--- NOTE | 2020-11-10 10:28 | RAD REPORT ---
EXAM DESCRIPTION: RAD - Finger-Thumb Right - 11/10/2020 10:16 am CLINICAL HISTORY: Fifth digit pain FINDINGS: No fracture or dislocation seen
--- NOTE | 2020-11-10 10:48 | EDPHYS ---
Physician Documentation [facility] Name: Bobo Monroe Age: 25 yrs Sex: Male : 1995 Arrival Date: 11/10/2020 Time: 09:35 Bed 16 Private MD: Mohit Bey HPI: 11/10 10:20 This 25 yrs old Male presents to ER via Ambulatory with complaints of Finger cp Injury. 10:20 The patient or guardian reports injury, pain. The complaints affect the right small cp finger. Context: resulted from twisting type injury. Onset: The symptoms/episode began/occurred 2-3 weeks ago. Associated signs and symptoms: Pertinent negatives: cyanosis distally, decreased sensation distally. Historical: - Allergies: 09:48 No Known Allergies; bp - Home Meds: 09:48 None [Active]; bp - PMHx: 09:48 None; bp - Immunization history:: Adult Immunizations up to date. - Social history:: Smoking status: Patient denies any tobacco usage or history of. ROS: 10:23 Constitutional: Negative for fever. cp 10:23 MS/extremity: Positive for injury or acute deformity, pain, tenderness, of the right small finger, Negative for decreased range of motion, paresthesias. 10:23 Skin: Negative for cellulitis, rash. 10:23 All other systems are negative. Exam: 10:24 Musculoskeletal/extremity: Extremities: grossly normal except: noted in the right cp little finger: deformity, pain, swelling, tenderness, There is no evidence of decreased ROM, Perfusion: the extremity is normally perfused throughout, Sensation intact. 10:24 Skin: cellulitis, is not appreciated. Vital Signs: 09:46 BP 139 / 74; Pulse 59; Resp 17; Temp 98.6; Pulse Ox 100% ; Weight 61.23 kg; Height 5 bp ft. 10 in. (177.80 cm); 09:51 Weight 61.23 kg (R); Height 5 ft. 10 in. (177.80 cm); Pain 7/10; tw2 10:35 BP 118 / 72; Pulse 60; Resp 16; Pulse Ox 100% on R/A; mh5 09:51 Body Mass Index 19.37 (61.23 kg, 177.80 cm) tw2 09:51 "7/10 with movement or any kind of vibration, 0/10 when just sitting here" tw2 Procedures: 11:00 Splinting: Splint applied to right little finger using finger splint, applied by nurse. cp Examined by me, post splint application: neurovascular intact, Patient tolerated well. MDM: 09:42 Patient medically screened. [facility] 10:26 Test interpretation: by ED physician or midlevel provider: xrays of right small finger cp negative for fracture. 10:30 Differential diagnosis: dislocation, closed fracture, contusion. cp 10:46 Data reviewed: vital signs, nurses notes, radiologic studies, plain films. 11/10 10:02 Order name: XRAY Finger-Thumb RIGHT; Complete Time: 10:43 cp 11/10 10:43 Interpretation: Reviewed. 11/10 10:18 Order name: Finger Splint; Complete Time: 10:33 cp Administered Medications: 10:06 Drug: Ibuprofen 800 mg Route: PO; bp 10:57 Follow up: Response: No adverse reaction; Pain is decreased bp Disposition: 11:00 Chart complete. 11/11 06:49 Co-signature as Attending Physician, Mohit Almodovar MD I agree with the assessment and [facility] plan of care. Disposition: 11/10/20 10:47 Discharged to Home. Impression: Pain in right finger(s) - Fifth Finger. - Condition is Stable. - Discharge Instructions: Finger Sprain, Adult. - Prescriptions for Ibuprofen 800 mg Oral Tablet - take 1 tablet by ORAL route every 8 hours As needed take with food; 30 tablet. - Medication Reconciliation Form, Thank You Letter, Antibiotic Education, Prescription Opioid Use, Work release form form. - Follow up: Private Physician; When: 1 week; Reason: Recheck today's complaints. - Problem is new. - Symptoms have improved. Signatures: Dispatcher [employer] [facility] Mohit Almodovar MD MD cha Page, Corey, PA PA Vlad Dominguez, RN RN bp Corrections: (The following items were deleted from the chart) 11/10 10:16 09:53 Finger-Thumb Left+.RAD.RAD.BRZ ordered. [facility] 10:23 10:21 This 25 yrs old Male presents to ER via Ambulatory with complaints of cp Finger Injury. cp 10:57 10:47 11/10/2020 10:47 Discharged to Home. Impression: Pain in right finger(s) - Fifth bp Finger. Condition is Stable. Forms are Work release form, Medication Reconciliation Form, Thank You Letter, Antibiotic Education, Prescription Opioid Use. Follow up: Private Physician; When: 1 week; Reason: Recheck today's complaints. Problem is new. Symptoms have improved. cp
--- NOTE | 2020-11-10 10:48 | ER ---
Nurse's Notes [facility] [place] Name: Bobo Monroe Age: 25 yrs Sex: Male : 1995 Arrival Date: 11/10/2020 Time: 09:35 Bed 16 Private MD: Diagnosis: Pain in right finger(s)-Fifth Finger Presentation: 11/10 09:46 Chief complaint: Patient states: RIGHT FIFTH FINGER INJURY. Coronavirus screen: At this bp time, the client does not indicate any symptoms associated with coronavirus-19. Ebola Screen: No symptoms or risks identified at this time. Initial Sepsis Screen: Does the patient meet any 2 criteria? No. Patient's initial sepsis screen is negative. Does the patient have a suspected source of infection? No. Patient's initial sepsis screen is negative. Risk Assessment: Do you want to hurt yourself or someone else? Patient reports no desire to harm self or others. Note 2 WK OLD INJURY. Onset of symptoms is unknown. 09:46 Method Of Arrival: Ambulatory bp 09:46 Acuity: BAKARI 4 bp Triage Assessment: 09:48 General: Appears in no apparent distress. uncomfortable, Behavior is calm, cooperative, bp appropriate for age. Pain: Complains of pain in right little finger. EENT: No deficits noted. Neuro: No deficits noted. Cardiovascular: No deficits noted. Respiratory: No deficits noted. GI: No signs and/or symptoms were reported involving the gastrointestinal system. : No signs and/or symptoms were reported regarding the genitourinary system. Derm: No deficits noted. Musculoskeletal: Circulation, motion, and sensation intact. Bony deformity noted of right little finger. Injury Description: Deformity sustained to right little finger. Historical: - Allergies: 09:48 No Known Allergies; bp - Home Meds: 09:48 None [Active]; bp - PMHx: 09:48 None; bp - Immunization history:: Adult Immunizations up to date. - Social history:: Smoking status: Patient denies any tobacco usage or history of. Screenin:49 Abuse screen: Denies threats or abuse. Denies injuries from another. Nutritional bp screening: No deficits noted. Tuberculosis screening: No symptoms or risk factors identified. Fall Risk None identified. Assessment: 09:49 General: SEE TRIAGE NOTE. bp 10:56 Reassessment: PT D/C HOME AMBULATORY, DX WITH FINGER SPRAIN. bp Vital Signs: 09:46 BP 139 / 74; Pulse 59; Resp 17; Temp 98.6; Pulse Ox 100% ; Weight 61.23 kg; Height 5 bp ft. 10 in. (177.80 cm); 09:51 Weight 61.23 kg (R); Height 5 ft. 10 in. (177.80 cm); Pain 7/10; tw2 10:35 BP 118 / 72; Pulse 60; Resp 16; Pulse Ox 100% on R/A; mh5 09:51 Body Mass Index 19.37 (61.23 kg, 177.80 cm) tw2 09:51 "7/10 with movement or any kind of vibration, 0/10 when just sitting here" tw2 ED Course: 09:35 Patient arrived in ED. ag3 09:42 Mohit He PA is PHCP. cp 09:42 Mohit Almodovar MD is Attending Physician. cp 09:46 Vlad Garcia, NIHARIKA is Primary Nurse. bp 09:47 Triage completed. bp 09:48 Arm band placed on. bp 09:49 Patient has correct armband on for positive identification. Bed in low position. Call bp light in reach. Side rails up X2. 10:16 XRAY Finger-Thumb RIGHT In Process Unspecified. EDMS 10:33 Orthoglass splint: Ulnar gutter/Boxer splint applied on right forearm. 5 10:56 No provider procedures requiring assistance completed. Patient did not have IV access bp during this emergency room visit. Administered Medications: 10:06 Drug: Ibuprofen 800 mg Route: PO; bp 10:57 Follow up: Response: No adverse reaction; Pain is decreased bp Outcome: 10:47 Discharge ordered by MD. cp 10:56 Discharged to home ambulatory. bp 10:56 Condition: stable 10:56 Discharge instructions given to patient, Instructed on discharge instructions, follow up and referral plans. medication usage, Demonstrated understanding of instructions, follow-up care, medications, splint care, Prescriptions given X 1. 10:57 Patient left the ED. bp Signatures: Dispatcher [employer] EDMS Mohit He PA PA cp Wise, Tara, RN RN 2 Jazzy Brooks 5 Vlad Garcia, NIHARIKA RN bp Luci Crowley 3
[2020-11-10 11:06] VITALS: TEMP 98.6; O2SAT 100
[2020-11-10 11:09] VITALS: BP 118/72
== END 2020-11-10 10:57 | disposition home or self-care (01) ==
LOC: ER 09:32
DX: M79.644 Pain in right finger(s) (principal)
CPT/HCPCS: 99284

== ENCOUNTER 2023-08-08 13:00 | Emergency (ER) | payer SELFPAY ==
--- OUTSIDE RECORDS SUMMARY | 2023-08-08 13:02 | XMS REPORT | Continuity of Care Document ---
:1995 Author Organization [facility] t Address [address] [place] [address] [address] [place] [address] Care Team Providers Name Role Phone Pcp, Patient Does Not Have A Primary Care Physician +[id number] ERNESTO HOLGUIN Attending Clinician Unavailable Ernesto Holguin MD Attending Clinician Doctor Unassigned, [place] Attending Clinician Unavailable Lab, Adc Fam Pob I Attending Clinician Unavailable Jovany Mendiola Attending Clinician JOVANY FLOYD Attending Clinician Unavailable ERNESTO HOLGUIN Admitting Clinician Unavailable Payers Payer Name Policy Type Policy Number Effective Date Expiration Date S [facility] - [id number] 2014 00:00:00 OUT OF STATE Problems This patient has no known problems. Allergies, Adverse Reactions, Alerts Allergy Allergy Status Severity Reaction(s) Onset Inactive Treating Comm ents Source Name Type Date Date Clinician NO KNOWN Drug Active Univers ALLERGIE Class ity of S [facility] Social History Social Habit Start Date Stop Date Quantity Comments Source [facility] Sexual orientation Univer [facility] Exposure to 2020-04-18 2020-05-18 Yes [facility] SARS-CoV-2 (event) 00:00:00 07:56:00 Medica l Branch Sex Assigned At [birth year] [facility] 00:00:00 00:00:00 Medical Branch Smoking Status Start Date Stop Date Source Tobacco smoking consumption [facility] [place] [facility] unknown Branch Medications Ordered Filled Start Stop Current Ordering Indication Dosage Frequency Signature Comments Components Source Medication Medication Date Date Medication? Clinician (SIG) Name Name FENTanyl PF 2022- No 75ug 75 mcg, Un romeo (SUBLIMAZE 07-15 Intramuscu it y of (PF)) 19:00: 18:24 lar, ONCE, [place] injection 00 :00 1 dose, On Medi sue 75 mcg 07/15/23 Branch at 1400, Routine ketorolac 2022- No 30mg 30 mg, Unive rs (TORADOL) 07-15 Intramuscu ity of injection 18:45: 18:22 lar, ONCE, [place] 30 mg 00 :00 1 dose, On Medical 07/15/23 Branch at 1345, SIENNA methocarbam Yes [id number] 750mg Take 1 Univers oL 750 mg 07-15 tablet by ity o f tablet 00:00: mouth [address] [place] [address] [facility]) Medical times Branch daily. naproxen 2022- Yes [id number] 500mg Take 1 Univers 500 mg 07-15 tablet by ity of tablet 00:00: 04:59 mouth in [place] 00 :00 the Medical morning Branch and 1 tablet in the evening. Take with meals. Do all this for 10 days. doxepin 5 % Yes [id number] Apply to Univers cream 2-08 affected ity of 00:00: area(s) 4 [place] [address] [facility]) Medical times Branch daily. Apply to affected areas up to every four hours, cover loosely; may use up to seven days betamethaso 2018- Yes [id number] Apply to Univers ne valerate 2-08 area(s) 2 ity of 0.1 % 00:00: (two) [place] ointment 00 times Medical daily. Branch doxepin 5 % Yes [id number] Apply to Univers cream 2-08 affected ity of 00:00: area(s) 4 [place] [address] (four) Medical times Branch daily. Apply to affected areas up to every four hours, cover loosely; may use up to seven days betamethaso 2019- Yes [id number] Apply to Univers ne valerate 2-08 area(s) 2 ity of 0.1 % 00:00: (two) [place] ointment 00 times Medical daily. Branch doxepin 5 % Yes [id number] Apply to Univers cream 2-08 affected ity of 00:00: area(s) 4 [place] 00 (four) Medical times Branch daily. Apply to affected areas up to every four hours, cover loosely; may use up to seven days doxepin 5 % Yes [id number] Apply to Univers cream 2-08 affected ity of 00:00: area(s) 4 [place] 00 (four) Medical times Branch daily. Apply to affected areas up to every four hours, cover loosely; may use up to seven days betamethaso 2018-0 Yes [id number] Apply to Univers ne valerate 2-08 area(s) 2 ity of 0.1 % 00:00: (two) [place] ointment 00 times Medical daily. Branch betamethaso 2018-0 Yes [id number] Apply to Univers ne valerate 2-08 area(s) 2 ity of 0.1 % 00:00: (two) [place] ointment 00 times Medical daily. Branch traMADOL 50 Yes 50mg Take 1 Univ ers mg tablet 6-06 tablet by ity o f 00:00: mouth [place] 00 every 6 Medical (six) Branch hours as needed for Pain (scale 1-3). traMADOL 50 0 Yes 50mg Take 1 Univ ers mg tablet 6-06 tablet by ity o f 00:00: mouth [place] 00 every 6 Medical (six) Branch hours as needed for Pain (scale 1-3). traMADOL 50 0 Yes 50mg Take 1 Univ ers mg tablet 6-06 tablet by ity o f 00:00: mouth [place] 00 every 6 Medical (six) Branch hours as needed for Pain (scale 1-3). traMADOL 50 0 Yes 50mg Take 1 Univ ers mg tablet 6-06 tablet by ity o f 00:00: mouth [place] 00 every 6 Medical (six) Branch hours as needed for Pain (scale 1-3). albuterol 2014-11 Yes 2{puff} Inhale 2 U nivers (VENTOLIN) 2-17 Puffs ity of 90 00:00: every 4 [place] mcg/actuati 00 (four) Medica l on inhaler hours as Branc h needed for Wheezing or Shortness of Breath. albuterol 2014-11 Yes 2{puff} Inhale 2 U nivers (VENTOLIN) 2-17 Puffs ity of 90 00:00: every 4 [place] mcg/actuati 00 (four) Medica l on inhaler hours as Branc h needed for Wheezing or Shortness of Breath. albuterol 2014-11 Yes 2{puff} Inhale 2 U nivers (VENTOLIN) 2-17 Puffs ity of 90 00:00: every 4 [place] mcg/actuati 00 (four) Medica l on inhaler hours as Branc h needed for Wheezing or Shortness of Breath. albuterol 2014-11 Yes 2{puff} Inhale 2 U nivers (VENTOLIN) 2-17 Puffs ity of 90 00:00: every 4 [place] mcg/actuati 00 (four) Medica l on inhaler hours as Branc h needed for Wheezing or Shortness of Breath. Vital Signs Vital Name Observation Time Observation Value Comments Source Systolic blood 2023-07-15 19:41:39 123 [facility] Diastolic blood 2023-07-15 19:41:39 79 mm[Hg] [facility] 2023-07-15 19:41:39 60 /min [facility] Body temperature 2023-07-15 19:41:39 36.61 Elaine [facility] Respiratory rate 2023-07-15 19:41:39 16 /min [facility] Body height 2023-07-15 17:28:00 177.8 cm [facility] Body weight 2023-07-15 17:28:00 61.236 kg [facility] BMI 2023-07-15 17:28:00 19.37 kg/m2 [facility] Oxygen saturation in 2023-07-15 17:28:00 98 /min [facility] blood by [facility] Pulse oximetry Branch Procedures Procedure Date / Time Performed Performing Clinician Sour e ASSIGNMENT OF BENEFITS 2023-07-15 18:43:31 Doctor Unassigned, No [facility] Name Medical Branch CONSENT/REFUSAL FOR 2023-07-15 17:22:19 Doctor Unassigned, No [facility] DIAGNOSIS AND Name [facility] TREATMENT Encounters Start End Encounter Admission Attending Care Care Encounter Source Date/Time Date/Time Type Type Clinicians Facility Department ID 2023-07-15 2023-07-15 Emergency [address] EZIO [facility] ERT [id number] Univers 12:31:00 14:43:00 ERNESTO ity of [facility] 2023-07-15 2023-07-15 [facility] [id number] Univers 12:31:00 14:43:00 Ernesto LARIOS [id number] i ty [facility] [id number] [phone] [address] 2020-05-20 2020-05-20 Patient Doctor LETICIA [id number] Univers 00:00:00 00:00:00 Secure Msg Unassigned, JUANJOSE [id number] ity of [place] [facility] [id number] Arturo as [phone] [address] 2020-05-18 2020-05-18 Laboratory Lab, [facility] [id number] 07:53:11 08:13:11 Only Fam Pob I Health [id number] [place] [id number] Professio [phone] [place] [address] [address] 2020-05-18 2020-05-18 Laboratory Lab, [facility] Fam Pob I [facility] [id number] Univers 07:53:11 08:13:11 Only Jovany [facility] [id number] ity of [place] [id number] Arturo as Professio [phone] [place] [address] Office [address] 2020-05-18 2020-05-18 Outpatient R MARIEL [facility] [id number] Univers 08:00:00 08:00:00 JOVANY ity of [facility] 2020-05-18 2020-05-18 Letter Doctor LETICIA [id number] Univers 00:00:00 00:00:00 (Out) Unassigned, JUANJOSE [id number] ity of [place] [facility] [id number] Arturo as [phone] [facility] 044 Branch 2020-05-18 2020-05-18 Letter Doctor LETICIA [id number] 00:00:00 00:00:00 (Out) Unassigned, JUANJOSE [id number] [place] [facility] [id number] 044 Results This patient has no known results.
--- NOTE | 2023-08-08 13:24 | EDPHYS ---
Physician Documentation [facility] Name: Bobo Monroe Age: 28 yrs Sex: Male : 1995 Arrival Date: 08/08/2023 Time: 13:00 Bed 12 Private MD: ED Physician Lázaro Marshall HPI: 08/08 13:26 This 28 yrs old Male presents to ER via Ambulatory with complaints of Back snw Pain. 13:26 The patient presents with pain that is acute, with no known mechanism of injury. The snw symptoms are located in the left subscapular area and left mid back. Onset: The symptoms/episode began/occurred acutely, this morning. The pain does not radiate. Associated signs and symptoms: The patient has no apparent associated signs or symptoms. The problem was sustained pt works for [employer], carries 12ft ladders. Went to [facility] last month for same s/s. Pt rec'd anti inflam and muscle relaxers, felt better, got out of shower to get dressed for work and same area locked up, tender to palp. Denies CVA tenderness, hematuria, or other s/s. Severity of symptoms: At their worst the symptoms were moderate, severe, in the emergency department the symptoms are unchanged. The patient has experienced a previous episode, last month. The patient has not recently seen a physician. Historical: - Allergies: 13:22 No Known Allergies; aa5 - Home Meds: 13:22 None [Active]; aa5 - PMHx: 13:22 None; aa5 - PSHx: 13:22 None; aa5 - Immunization history:: Adult Immunizations unknown. - Social history:: Smoking status: Reported history of juuling and/or vaping. ROS: 13:28 Constitutional: Negative for fever, chills, and weight loss, Eyes: Negative for injury, snw pain, redness, and discharge, ENT: Negative for injury, pain, and discharge, Neck: Negative for injury, pain, and swelling, Cardiovascular: Negative for chest pain, palpitations, and edema, Respiratory: Negative for shortness of breath, cough, wheezing, and pleuritic chest pain, Abdomen/GI: Negative for abdominal pain, nausea, vomiting, diarrhea, and constipation, : Negative for injury, bleeding, discharge, and swelling, MS/Extremity: Negative for injury and deformity, Skin: Negative for injury, rash, and discoloration, Neuro: Negative for headache, weakness, numbness, tingling, and seizure, Psych: Negative for depression, anxiety, suicide ideation, homicidal ideation, and hallucinations, 13:28 Back: Positive for pain at rest, pain with movement, of the left subscapular area and left mid back, Exam: 13:29 Constitutional: This is a well developed, well nourished patient who is awake, alert, snw and in no acute distress. Head/Face: Normocephalic, atraumatic. Eyes: Pupils equal round and reactive to light, extra-ocular motions intact. Lids and lashes normal. Conjunctiva and sclera are non-icteric and not injected. Cornea within normal limits. Periorbital areas with no swelling, redness, or edema. ENT: Nares patent. No nasal discharge, no septal abnormalities noted. Tympanic membranes are normal and external auditory canals are clear. Oropharynx with no redness, swelling, or masses, exudates, or evidence of obstruction, uvula midline. Mucous membranes moist. Neck: Trachea midline, no thyromegaly or masses palpated, and no cervical lymphadenopathy. Supple, full range of motion without nuchal rigidity, or vertebral point tenderness. No Meningismus. Chest/axilla: Normal chest wall appearance and motion. Nontender with no deformity. No lesions are appreciated. Cardiovascular: Regular rate and rhythm with a normal S1 and S2. No gallops, murmurs, or rubs. Normal PMI, no JVD. No pulse deficits. Respiratory: Lungs have equal breath sounds bilaterally, clear to auscultation and percussion. No rales, rhonchi or wheezes noted. No increased work of breathing, no retractions or nasal flaring. Abdomen/GI: Soft, non-tender, with normal bowel sounds. No distension or tympany. No guarding or rebound. No evidence of tenderness throughout. Skin: Warm, dry with normal turgor. Normal color with no rashes, no lesions, and no evidence of cellulitis. MS/ Extremity: Pulses equal, no cyanosis. Neurovascular intact. Full, normal range of motion. Neuro: Awake and alert, GCS 15, oriented to person, place, time, and situation. Cranial nerves II-XII grossly intact. Motor strength 5/5 in all extremities. Sensory grossly intact. Cerebellar exam normal. Normal gait. Psych: Awake, alert, with orientation to person, place and time. Behavior, mood, and affect are within normal limits. 13:29 Neuro: pt holds himself stiff on position change, tender to palp under scapula to lower left back, Vital Signs: 13:21 BP 133 / 87; Pulse 70; Resp 16 S; Temp 98.6(TE); Pulse Ox 100% on R/A; Weight 63.5 kg aa5 (R); Height 5 ft. 9 in. (R); 13:56 BP 131 / 86; Pulse 68; Resp 16; Pulse Ox 100% ; cp4 13:21 Body Mass Index 20.67 (63.50 kg, 175.26 cm) aa5 MDM: 13:05 Patient medically screened. snw 13:25 Differential diagnosis: arthritis, Fatigue sprain, muscle spasm. Data reviewed: vital snw signs, nurses notes. I considered the following discharge prescriptions or medication management in the emergency department Medications were administered in the Emergency Department. See MAR. Counseling: I had a detailed discussion with the patient and/or guardian regarding the historical points, exam findings, and any diagnostic results supporting the discharge/admit diagnosis, the need for outpatient follow up, for definitive care, to return to the emergency department if symptoms worsen or persist or if there are any questions or concerns that arise at home. Special discussion: Based on the history and exam findings, there is no indication for further emergent testing or inpatient evaluation. I discussed with the patient/guardian the need to see the primary care provider for further evaluation of the symptoms. Administered Medications: 13:30 Drug: Ketorolac IM 15 mg IM once Route: IM; Site: left gluteus; aa5 14:00 Follow up: Response: No adverse reaction cp4 13:30 Drug: Diazepam PO 10 mg PO once Route: PO; aa5 14:00 Follow up: Response: No adverse reaction cp4 Disposition: 17:57 Co-signature as Attending Physician, Lázaro Marshall MD I reviewed the patient's care rt provided by the Advanced Practice Provider and agree with the diagnosis and treatment plan. Disposition Summary: 08/08/23 13:24 Discharge Ordered Notes: Location: Home snw Condition: Stable snw Diagnosis - Muscle spasm of back snw Followup: snw - With: Emergency Department - When: As needed - Reason: Worsening of condition Followup: snw - With: Private Physician - When: 2 - 3 days - Reason: Recheck today's complaints, Continuance of care, Re-evaluation by your physician Discharge Instructions: - Discharge Summary Sheet snw - Muscle Cramps and Spasms snw - Heat Therapy snw Forms: - Work release form snw - Medication Reconciliation Form snw - Thank You Letter snw - Antibiotic Education snw - Prescription Opioid Use snw - Patient Portal Instructions snw - Leadership Thank You Letter snw Prescriptions: - Mobic 7.5 mg Oral Tablet - take 1 tablet ORAL route once daily take with food; 20 tablet; Refills: 0, snw Product Selection Permitted - orphenadrine citrate 100 mg Oral Tablet Sustained Release - take 1 tablet ORAL route 2 times per day As needed; 20 tablet; Refills: 0, snw Product Selection Permitted Signatures: Eleonora Smith, LEON-C CRANKSHAFT GRINDER-Csnw Gail Schneider RN RN aa5 Lázaro Marshall MD MD rt Pati Howard cp4
--- NOTE | 2023-08-08 13:24 | ER ---
Nurse's Notes [facility] Name: Bobo Monroe Age: 28 yrs Sex: Male : 1995 Arrival Date: 08/08/2023 Time: 13:00 Bed 12 Private MD: Diagnosis: Muscle spasm of back Presentation: 08/08 13:21 Chief complaint: Patient states: muscle spasm to left side of back since this morning, aa5 pt states "I had this pain about a month ago and I went to [facility]". Coronavirus screen: At this time, the client does not indicate any symptoms associated with coronavirus-19. Ebola Screen: Patient denies travel to an Ebola-affected area in the 21 days before illness onset. Initial Sepsis Screen: Does the patient meet any 2 criteria? No. Patient's initial sepsis screen is negative. Does the patient have a suspected source of infection? No. Patient's initial sepsis screen is negative. Risk Assessment: Do you want to hurt yourself or someone else? Patient reports no desire to harm self or others. Onset of symptoms was August 08, 2023. 13:21 Acuity: BAKARI 3 aa5 13:21 Method Of Arrival: Ambulatory aa5 Triage Assessment: 13:59 General: Appears. General: Appears in no apparent distress. Behavior is calm, cp4 cooperative. Musculoskeletal: Circulation, motion, and sensation intact. Historical: - Allergies: 13:22 No Known Allergies; aa5 - Home Meds: 13:22 None [Active]; aa5 - PMHx: 13:22 None; aa5 - PSHx: 13:22 None; aa5 - Immunization history:: Adult Immunizations unknown. - Social history:: Smoking status: Reported history of juuling and/or vaping. Screenin:57 [facility] ED Fall Risk Assessment (Adult) History of falling in the last 3 months, cp4 including since admission No falls in past 3 months (0 pts) Confusion or Disorientation No (0 pts) Intoxicated or Sedated No (0 pts) Impaired Gait No (0 pts) Mobility Assist Device Used No (0 pt) Altered Elimination No (0 pt) Score/Fall Risk Level 0 - 2 = Low Risk. Abuse screen: Denies threats or abuse. Nutritional screening: No deficits noted. Tuberculosis screening: No symptoms or risk factors identified. Assessment: 13:30 Reassessment: Patient is alert, oriented x 3, equal unlabored respirations, skin aa5 warm/dry/pink. 13:57 Pain: Complains of pain in back. Neuro: No deficits noted. cp4 Vital Signs: 13:21 BP 133 / 87; Pulse 70; Resp 16 S; Temp 98.6(TE); Pulse Ox 100% on R/A; Weight 63.5 kg aa5 (R); Height 5 ft. 9 in. (R); 13:56 BP 131 / 86; Pulse 68; Resp 16; Pulse Ox 100% ; cp4 13:21 Body Mass Index 20.67 (63.50 kg, 175.26 cm) aa5 ED Course: 13:00 Patient arrived in ED. rg4 13:04 Eleonora Smith FNP-C [facility] snw 13:04 Lázaro Marshall MD is Attending Physician. snw 13:21 Arm band placed on. aa5 13:22 Triage completed. aa5 13:57 Bed in low position. Call light in reach. Side rails up X 1. Provided Education on: cp4 back pain. 13:57 No provider procedures requiring assistance completed. Patient did not have IV access cp4 during this emergency room visit. 13:59 Pati Howard is Primary Nurse. cp4 Administered Medications: 13:30 Drug: Ketorolac IM 15 mg IM once Route: IM; Site: left gluteus; aa5 14:00 Follow up: Response: No adverse reaction cp4 13:30 Drug: Diazepam PO 10 mg PO once Route: PO; aa5 14:00 Follow up: Response: No adverse reaction cp4 Medication: 13:57 VIS not applicable for this client. cp4 Outcome: 13:24 Discharge ordered by . snw 13:57 Discharged to home ambulatory, cp4 13:57 Condition: stable 13:57 Discharge instructions given to patient, Instructed on discharge instructions, follow up and referral plans. medication usage, Demonstrated understanding of instructions, follow-up care, medications, Prescriptions given X 2, 14:00 Patient left the ED. cp4 Signatures: Eleonora Smith FNP-C STATEMENT SERVICES REPRESENTATIVE-Csnw Gail Schneider, RN RN aa5 Christa Shaikh rg4 Pati Howard cp4 Corrections: (The following items were deleted from the chart) 13:23 13:21 BP 133 / 87; Pulse 70bpm; Resp 16bpm; Spontaneous; Pulse Ox 100% RA; Temp 98.6F aa5 Temporal; aa5
[2023-08-08] MEDS ORDERED: DIAZEPAM 5 MG TABLET ONE (13:39)
[2023-08-08] MEDS ORDERED: KETOROLAC 30 MG/ML INJ ONE (13:39)
[2023-08-08 14:04] VITALS: TEMP 98.6; O2SAT 100
[2023-08-08 14:05] VITALS: BP 131/86
== END 2023-08-08 14:00 | disposition home or self-care (01) ==
LOC: ER 13:00
DX: M62.830 Muscle spasm of back (principal)
CPT/HCPCS: 96372; 99284

== ENCOUNTER 2024-11-05 18:38 | Emergency (ER) | payer SELFPAY ==
--- OUTSIDE RECORDS SUMMARY | 2024-11-05 18:40 | XMS REPORT | Continuity of Care Document ---
Author Name Unknown Address [address] [place] [address] [facility] thconnect Address [address] [place] [address] Care Team Providers Care School Teacher Name Role Phone Pcp, Patient Does Not Have A Primary Care Physic xi ERNESTO HOLGUIN Attending Clinician Unavailable Ernesto Holguin MD Attending Clinician [phone] Doctor Unassigned, [place] Attending Clinician U navailable Lab, Adc Fam Pob I Attending Clinician Unavailab Jovany Unger Attending Clinician JOVANY FLOYD Attending Clinician Unavailable ERNESTO HOLGUIN Admitting Clinician Unavailable Payers Payer Name Policy Type Policy Number Effective Date Expirati on Date Source [facility] - OUT OF STATE [id number] 2014 00:00:00 Allergies, Adverse Reactions, Alerts Allergy Name Allergy Type Status Severity Reaction(s) Onset Date Inactive Date Treating Clinician Comments Source NO KNOWN ALLERGIE S Drug Class Active [facility] Social History Social Habit Start Date Stop Date Quantity Comments Source Gender identity [facility] Sexual orientation U [facility] Exposure to SARS-CoV-2 (event) 2020-04-18 00:00:00 2020-05-18 07:56:00 Yes [facility] Sex Assigned At 1995 00:00:00 1995 00:00:00 [facility] Smoking Status Start Date Stop Date Source Tobacco smoking consumption unknown [facility] Medications Ordered Medication Name Filled Medication Name Start Date Stop Date Current Medication? Ordering Clinician Indication Dosage Frequency Signature (SIG) Comments Components Source FENTanyl PF (SUBLIMAZE (PF)) injection 75 mcg 07-15 19:00: 00 07-15 18:24 :00 No 75ug 75 mcg, Intramuscu lar, ONCE, 1 dose, On 07/15/23 at 1400, Routine [facility] ketorolac (TORADOL) injection 30 mg 07-15 18:45: 00 07-15 18:22 :00 No 30mg 30 mg, Intramuscu lar, ONCE, 1 dose, On 07/15/23 at 1345, SIENNA [facility] methocarbam oL 750 mg tablet 07-15 00:00: 00 Yes [id number] 750mg Take 1 tablet by mouth 4 (four) times daily. [facility] naproxen 500 mg tablet 07-15 00:00: 00 07-26 04:59 :00 No [id number] 500mg Take 1 tablet by mouth in the morning and 1 tablet in the evening. Take with meals. Do all this for 10 days. [facility] doxepin 5 % cream 12-14 00:00: 00 Yes [id number] Apply to affected area(s) 4 (four) times daily. Apply to affected areas up to every four hours, cover loosely; may use up to seven days [facility] betamethaso ne valerate 0.1 % ointment 12-14 00:00: 00 Yes [id number] Apply to area(s) 2 (two) times daily. [facility] traMADOL 50 mg tablet 04-11 00:00: 00 Yes 50mg Take 1 tablet by mouth every 6 (six) hours as needed for Pain (scale 1-3). [facility] albuterol (VENTOLIN) 90 mcg/actuati on inhaler 2014-11 00:00: 00 Yes 2{puff} Inhale 2 Puffs every 4 (four) hours as needed for Wheezing or Shortness of Breath. [facility] Vital Signs Vital Name Observation Time Observation Value Comments Amber parrish Systolic blood pressure 2023-07-15 19:41:39 123 mm[Hg] [facility] Diastolic blood pressure 2023-07-15 19:41:39 79 mm[Hg] [facility] Heart rate 2023-07-15 19:41:39 60 /min Unive [facility] Body temperature 2023-07-15 19:41:39 36.61 Elaine [facility] Respiratory rate 2023-07-15 19:41:39 16 /min [facility] Body height 2023-07-15 17:28:00 177.8 cm [facility] Body weight 2023-07-15 17:28:00 61.236 kg [facility] BMI 2023-07-15 17:28:00 19.37 kg/m2 [facility] Oxygen saturation in Arterial blood by Pulse oximetry 2023-07-15 17:28:00 98 /min [facility] Procedures Procedure Date / Time Performed Performing Clinicia n Source ASSIGNMENT OF BENEFITS 2023-07-15 18:43:31 Docto r Unassigned, [place] [facility] CONSENT/REFUSAL FOR DIAGNOSIS AND TREATMENT 2023-07-15 17:22:19 Doctor Unassigned, [place] [facility] Encounters Start Date/Time End Date/Time Encounter Type Admission Type Attending Clinicians Care Facility Care Department Encounter ID Source 2023-07-15 12:31:00 2023-07-15 14:43:00 Emergency X ERNESTO HOLGUIN [facility] ERT [id number] [facility] 2023-07-15 12:31:00 2023-07-15 14:43:00 Emergency Ernesto Holguin [facility] 1..840.114 [id number] [facility] 2020-05-20 00:00:00 2020-05-20 00:00:00 Patient Secure Msg Doctor Unassigned, [place] [facility] 1.0.114 [id number] [facility] 2020-05-18 07:53:11 2020-05-18 08:13:11 Laboratory Only Lab, [facility] [address] 1.114 [id number] 2020-05-18 07:53:11 2020-05-18 08:13:11 Laboratory Only Lab, [facility] Jovany Seyd [facility] [address] 1. [id number] [facility] 2020-05-18 08:00:00 2020-05-18 08:00:00 Outpatient JOVANY EATON [facility] [id number] [facility] 2020-05-18 00:00:00 2020-05-18 00:00:00 Letter (Out) Doctor Unassigned, [place] [facility] 1.114 [id number] [facility] 2020-05-18 00:00:00 2020-05-18 00:00:00 Letter (Out) Doctor Unassigned, [place] [facility] 1.0.114 [id number]
--- NOTE | 2024-11-05 19:38 | RAD REPORT ---
Procedure: Chest Single View HISTORY: Chest pain COMPARISON: 2014 FINDINGS: The lungs appear clear of acute infiltrate. No significant pleural effusion noted. The heart is normal size. IMPRESSION: No acute abnormality is displayed.
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
[2024-11-06 03:42] VITALS: O2SAT 100
[2024-11-06 03:44] VITALS: BP 128/70; TEMP 97.6
== END 2024-11-05 19:52 | disposition home or self-care (01) ==
LOC: ER 18:38
DX: R07.89 Other chest pain (principal); V47.6XXA Car passenger injured in collision with fixed or stationary object in traffic accident, initial encounter
CPT/HCPCS: 71045; 99283

== ENCOUNTER 2025-06-10 12:41 | Emergency (ER) | payer SELFPAY ==
--- OUTSIDE RECORDS SUMMARY | 2025-06-10 12:43 | XMS REPORT | Continuity of Care Document ---
Author Name Unknown Address [address] [place] [address] [facility] Address [address] [place] [address] Care Team Providers Care Matrix Drier Tender Name Role Phone Pcp, Patient Does Not Have A Primary Care Physic xi ERNESTO HOLGUIN Attending Clinician Unavailable Ernesto Holguin MD Attending Clinician [phone] Doctor Unassigned, [place] Attending Clinician U navailable Lab, Adc Fam Pob I Attending Clinician Unavailab Jovany Unger Attending Clinician [phone] JOVANY FLOYD Attending Clinician Unavailable ERNESTO HOLGUIN Admitting Clinician Unavailable Payers Payer Name Policy Type Policy Number Effective Date Expirati on Date Source [facility] [id number] 2014 00:00:00 Allergies, Adverse Reactions, Alerts Allergy Name Allergy Type Status Severity Reaction(s) Onset Date Inactive Date Treating Clinician Comments Source NO KNOWN ALLERGIE S Drug Class Active [facility] Social History Social Habit Start Date Stop Date Quantity Comments Source Gender identity [facility] Sexual orientation [facility] Exposure to SARS-CoV-2 (event) 2020-04-18 00:00:00 2020-05-18 07:56:00 Yes [facility] Sex Assigned At 1995 00:00:00 1995 00:00:00 [facility] Smoking Status Start Date Stop Date Source Tobacco smoking consumption unknown [facility] Medications Ordered Medication Name Filled Medication Name Start Date Stop Date Current Medication? Ordering Clinician Indication Dosage Frequency Signature (SIG) Comments Components Source FENTanyl PF (SUBLIMAZE (PF)) injection 75 mcg 07-15 19:00: 00 07-15 18:24 :00 No 75ug 75 mcg, Intramuscu lar, ONCE, 1 dose, On 07/15/23 at 1400, Routine [facility] ketorolac (TORADOL) injection 30 mg 07-15 18:45: 00 07-15 18:22 :00 No 30mg 30 mg, Intramuscu lar, ONCE, 1 dose, On 07/15/23 at 1345, SIENNA [facility] methocarbam oL 750 mg tablet 07-15 00:00: 00 Yes [id number] 750mg Take 1 tablet by mouth 4 (four) times daily. [facility] naproxen 500 mg tablet 07-15 00:00: 00 07-26 04:59 :00 No [id number] 500mg Take 1 tablet by mouth in the morning and 1 tablet in the evening. Take with meals. Do all this for 10 days. [facility] doxepin 5 % cream 12-14 00:00: 00 Yes [id number] Apply to affected area(s) 4 (four) times daily. Apply to affected areas up to every four hours, cover loosely; may use up to seven days [facility] betamethaso ne valerate 0.1 % ointment 12-14 00:00: 00 Yes [id number] Apply to area(s) 2 (two) times daily. [facility] traMADOL 50 mg tablet 04-11 00:00: 00 Yes 50mg Take 1 tablet by mouth every 6 (six) hours as needed for Pain (scale 1-3). [facility] albuterol (VENTOLIN) 90 mcg/actuati on inhaler 2014-11 00:00: 00 Yes 2{puff} Inhale 2 Puffs every 4 (four) hours as needed for Wheezing or Shortness of Breath. [facility] Vital Signs Vital Name Observation Time Observation Value Comments Amber parrish Systolic blood pressure 2023-07-15 19:41:39 123 mm[Hg] [facility] Diastolic blood pressure 2023-07-15 19:41:39 79 mm[Hg] [facility] Heart rate 2023-07-15 19:41:39 60 /min [facility] Body temperature 2023-07-15 19:41:39 36.61 Elaine [facility] Respiratory rate 2023-07-15 19:41:39 16 /min [facility] Body height 2023-07-15 17:28:00 177.8 cm [facility] Body weight 2023-07-15 17:28:00 61.236 kg [facility] BMI 2023-07-15 17:28:00 19.37 kg/m2 [facility] Oxygen saturation in Arterial blood by Pulse oximetry 2023-07-15 17:28:00 98 /min [facility] Procedures Procedure Date / Time Performed Performing Clinicia n Source ASSIGNMENT OF BENEFITS 2023-07-15 18:43:31 Docto r Unassigned, [place] [facility] CONSENT/REFUSAL FOR DIAGNOSIS AND TREATMENT 2023-07-15 17:22:19 Doctor Unassigned, [place] [facility] Encounters Start Date/Time End Date/Time Encounter Type Admission Type Attending Clinicians Care Facility Care Department Encounter ID Source 2023-07-15 12:31:00 2023-07-15 14:43:00 Emergency X ERNESTO HOLGUIN [facility] ERT [id number] [facility] 2023-07-15 12:31:00 2023-07-15 14:43:00 Emergency Ernesot Holguin [facility] [id number]..[id number] [id number] [facility] 2020-05-20 00:00:00 2020-05-20 00:00:00 Patient Secure Msg Doctor Unassigned, [place] [facility] 1..840.114 [id number] [id number] [facility] 2020-05-18 07:53:11 2020-05-18 08:13:11 Laboratory Only Lab, [facility] [address] [id number] 2020-05-18 07:53:11 2020-05-18 08:13:11 Laboratory Only Lab, [facility] Jovany Syed [facility] [address] [id number] [id number] [facility] 2020-05-18 08:00:00 2020-05-18 08:00:00 [id number] 2020-05-18 00:00:00 2020-05-18 00:00:00 Letter (Out) Doctor Unassigned, [place] [facility] [id number] [facility] 2020-05-18 00:00:00 2020-05-18 00:00:00 Letter (Out) Doctor Unassigned, [place] [facility] [id number] Notes Date/Time Note Provider Source 2023-07-15 14:42:33 Formatting of this n ote might be different from the original. Pt given printed and verbal discharge instructions regarding back pain, encouraged hydration, Prescriptions provided. Discussed ibuprofen and to take with food to avoid GI distress, alternate with Tylenol to help with pain and/or fever. Discussed medication side affects and to avoid driving/operating machinery/or engaging in activities requiring alertness while taking. Pt verbalized understanding of instructions,pt encouraged to follow up with pcp and or specialist. Advised to seek medical attention for new/prolonged/worsening of symptoms, No adverse reaction to meds given in ER noted upon discharge Awake, alert oriented, resp reg unlabored, skin w/d, pt leaving in no apparent distress, departed with family Betty Auguste RN [facility] 2023-07-15 12:26:02 Formatting of this n ote might be different from the original. Patient to ED complaining of left side back pain that started yesterday and got worse today. ELT Elias Cabrera RN [facility]
[2025-06-10 13:07] LABS: Absolute Lymphocytes (CBC) 1.2 K/uL (0.7-4.9); Hematocrit 38.4 % (39.6-49.0); Hemoglobin 12.5 g/dL (13.6-17.9); MCH 27.0 pg (27.0-35.0); MCHC 32.6 g/dL (32.0-36.0); MCV 82.8 fL (80-100); MPV 7.7 fL (7.6-11.3); Nucleated RBC Absolute Count 0.0 (0-0); Nucleated Red Blood Cells % 0.3 % (0-0); RBC Red Blood Cell Count 4.63 M/uL (4.33-5.43); White Blood Count 4.30 thou/uL (4.3-10.9)
[2025-06-10] MEDS ORDERED: Ringers Lactate 1,000 ML IV ONE (13:12)
[2025-06-10 13:28] LABS: ALT/SGPT 24 U/L (16-61); AST/SGOT 13 U/L (15-37); Albumin 3.3 g/dL (3.4-5.0); Albumin/Globulin Ratio 1.3 (1.1-1.8); Alkaline Phosphatase 51 U/L (45-117); Anion Gap 8.3 mEq/L (5.0-15.0); BUN Blood Urea Nitrogen 11 mg/dL (7-18); Globulin 2.5 g/dL (2.3-3.5); Glucose Level 118 mg/dL (74-106); Magnesium 1.8 mg/dL (1.6-2.4); Potassium 3.3 mEq/L (3.5-5.1)
[2025-06-10 13:35] LABS: Bilirubin Indirect, Calculated 0.1 mg/dL (0.2-0.8); Troponin High Sensitivity < 3.0 pg/mL (<58.9)
[2025-06-10] MEDS ORDERED: POTASSIUM 25 MEQ EFFERV TAB ONE (13:45)
--- NOTE | 2025-06-10 14:05 | ER ---
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 PT DENIES PAIN, CHEST PAIN, VOMITING. Coronavirus screen: At this time, the client does not indicate any symptoms associated with coronavirus-19. Ebola Screen: No symptoms or risks identified at this time. Initial Sepsis Screen: Does the patient meet any 2 criteria? No. Patient's initial sepsis screen is negative. Does the patient have a suspected source of infection? No. Patient's initial sepsis screen is negative. Initial Sepsis Screen: Does the patient meet any 2 criteria?. Risk Assessment: Do you want to hurt yourself or someone else? Patient reports no desire to harm self or others. Onset of symptoms was June 10, 2025. 12:44 Method Of Arrival: EMS: [facility] dd2 12:44 Acuity: BAKARI 3 dd2 Triage Assessment: 12:47 General: Appears in no apparent distress. Behavior is calm, cooperative, appropriate dd2 for age. Pain: Denies pain. EENT: No deficits noted. No signs and/or symptoms were reported regarding the EENT system. Neuro: No deficits noted. Level of Consciousness is awake, alert, obeys commands, Oriented to person, place, time, situation, Appropriate for age. Cardiovascular: No deficits noted. Patient's skin is warm and dry. Respiratory: No deficits noted. Airway is patent Respiratory effort is even, unlabored, Respiratory pattern is regular, symmetrical. GI: Abdomen is flat, non-distended, Reports nausea. : No deficits noted. No signs and/or symptoms were reported regarding the genitourinary system. Derm: No deficits noted. No signs and/or symptoms reported regarding the dermatologic system. Musculoskeletal: Circulation, motion, and sensation intact. Range of motion: intact in all extremities, Reports weakness in GENERALIZED. Historical: - Allergies: 12:47 No Known Allergies; dd2 - PMHx: 12:47 None; dd2 - PSHx: 12:47 None; dd2 - Immunization history:: Adult Immunizations unknown. - Infectious Disease History:: Denies. - Social history:: Smoking status: Patient denies any tobacco usage or history of. Screenin:10 [facility] ED Fall Risk Assessment (Adult) History of falling in the last 3 months, dd2 including since admission No falls in past 3 months (0 pts) Confusion or Disorientation No (0 pts) Intoxicated or Sedated No (0 pts) Impaired Gait No (0 pts) Mobility Assist Device Used No (0 pt) Altered Elimination No (0 pt) Score/Fall Risk Level 0 - 2 = Low Risk Oriented to surroundings, Maintained a safe environment, Educated pt \T\ family on fall prevention, incl call for assistance when getting out of bed, Assessed \T\ reinforced patient's understanding of fall precautions, Hourly rounding (assess needs \T\ fall precautionary measures) done. Abuse screen: Denies threats or abuse. Denies injuries from another. Nutritional screening: No deficits noted. Tuberculosis screening: No symptoms or risk factors identified. Assessment: 12:52 Reassessment: SEE TRIAGE ASSESSMENT FOR FULL ASSESSMENT. dd2 Vital Signs: 12:44 BP 124 / 74; Pulse 73; Resp 16; Temp 99.1; Pulse Ox 97% on R/A; Pain 0/10; dd2 13:28 BP 123 / 73; Pulse 66; Resp 16; Temp 98.7; Pulse Ox 99% on R/A; Pain 0/10; dd2 14:22 BP 124 / 78; Pulse 86; Resp 16; Temp 98.4; Pulse Ox 100% on R/A; dd2 12:44 Pain Scale: Adult dd2 13:28 Pain Scale: Adult dd2 [place] Coma Score: 13:10 Eye Response: spontaneous(4). Motor Response: obeys commands(6). Verbal Response: dd2 oriented(5). Total: 15. ED Course: 12:42 Patient arrived in ED. sp3 12:42 Vaishnavi Hancock MD is Attending Physician. sp3 12:47 Triage completed. dd2 12:47 Arm band placed on left wrist. dd2 13:07 Basic Metabolic Panel Sent. dd2 13:07 CBC with Diff Sent. dd2 13:07 LFT's Sent. dd2 13:07 Magnesium Sent. dd2 13:07 Troponin HS Sent. dd2 13:07 No provider procedures requiring assistance completed. Initial lab(s) drawn, by me, dd2 sent to lab. EKG done, by ED staff, reviewed by Vaishnavi Hancock MD. Maintain EMS IV. Dressing intact. Good blood return noted. Site clean \T\ dry. Gauge \T\ site: 18g lt forearm. Flushed with 10 mL NS. Patient maintains SpO2 saturation greater than 95% on room air. 13:10 Patient has correct armband on for positive identification. Bed in low position. Call dd2 light in reach. Side rails up X 1. Client placed on continuous cardiac and pulse oximetry monitoring. NIBP monitoring applied. fulfillment coordinator on. Door closed. Noise minimized. Pillow given. PO fluids given. Verbal reassurance given. 14:22 Provided Education on: D/C EDUCATIION. dd2 14:31 IV discontinued, intact, bleeding controlled, No redness/swelling at site. Pressure ap3 dressing applied. Administered Medications: 13:17 Drug: Ringers - Lactated Ringers Solution IV 1000 ml IV at bolus bolus; to be given as dd2 a bolus over 60 minutes Route: IV; Rate: bolus; Site: left forearm; 14:31 Follow up: IV Status: Completed infusion; IV Intake: 1000ml ap3 13:51 Drug: Potassium PO Effervescent Tablet 50 mEq PO once; dissolve in 4 ounces of water or dd2 juice Route: PO; 14:22 Follow up: Response: No adverse reaction dd2 Medication: 13:10 VIS not applicable for this client. dd2 Intake: 14:31 IV: 1000ml; Total: 1000ml. ap3 Outcome: 14:04 Discharge ordered by . sp3 14:31 Discharged to home ambulatory, ap3 14:31 Condition: good 14:31 Discharge instructions given to patient, Instructed on discharge instructions, follow up and referral plans. Demonstrated understanding of instructions, follow-up care, 14:31 Patient left the ED. ap3 Signatures: Maggy Mcbride RN RN ap3 Vaishnavi Hancock MD MD sp3 PABLO GONZALEZ RN RN dd2
--- NOTE | 2025-06-10 14:05 | EDPHYS ---
Physician Documentation [facility] Name: Bobo Monroe Age: 30 yrs Sex: Male : 1995 Arrival Date: 06/10/2025 Time: 12:41 Bed 16 Private MD: ED Physician Vaishnavi Hancock HPI: 06/10 13:20 This 30 yrs old Male presents to ER via EMS with complaints of Heat Exposure. sp3 13:20 30-year-old male with no past medical history presents via EMS for heat exhaustion type sp3 symptoms of near syncope, nausea and extreme fatigue. 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 Coworkers brought him to the EMS station who then transported him here. Vital signs been normal and they administered 1 L normal saline prior to arrival and route. Patient currently states he feels extremely fatigued and tired denies any other symptoms including headache, chest pain, shortness of breath, back pain, abdominal pain, but does endorse muscle cramps. Patient denies any heavy alcohol intake, substance abuse or any other history.. Historical: - Allergies: 12:47 No Known Allergies; dd2 - PMHx: 12:47 None; dd2 - PSHx: 12:47 None; dd2 - Immunization history:: Adult Immunizations unknown. - Infectious Disease History:: Denies. - Social history:: Smoking status: Patient denies any tobacco usage or history of. ROS: 13:22 Eyes: Negative for injury, pain, redness, and discharge, Neck: Negative for injury, sp3 pain, and swelling, Cardiovascular: Negative for chest pain, palpitations, and edema, Respiratory: Negative for shortness of breath, cough, wheezing, and pleuritic chest pain, Abdomen/GI: Negative for abdominal pain, nausea, vomiting, diarrhea, and constipation, Back: Negative for injury and pain, Skin: Negative for injury, rash, and discoloration, Psych: Negative for depression, anxiety, suicide ideation, homicidal ideation, and hallucinations, Allergy/Immunology: Negative for hives, rash, and allergies, Endocrine: Negative for neck swelling, polydipsia, polyuria, polyphagia, and marked weight changes, Hematologic/Lymphatic: Negative for swollen nodes, abnormal bleeding, and unusual bruising, 13:22 All other systems are negative, Exam: 13:22 Constitutional: This is a well developed, well nourished patient who is awake, alert, sp3 and in no acute distress. Head/Face: Normocephalic, atraumatic. Neck: Trachea midline, no thyromegaly or masses palpated, and no cervical lymphadenopathy. Supple, full range of motion without nuchal rigidity, or vertebral point tenderness. No Meningismus. Chest/axilla: Normal chest wall appearance and motion. Nontender with no deformity. No lesions are appreciated. Cardiovascular: Regular rate and rhythm with a normal S1 and S2. No gallops, murmurs, or rubs. Normal PMI, no JVD. No pulse deficits. Respiratory: Lungs have equal breath sounds bilaterally, clear to auscultation and percussion. No rales, rhonchi or wheezes noted. No increased work of breathing, no retractions or nasal flaring. Back: No spinal tenderness. No costovertebral tenderness. Full range of motion. Skin: Warm, dry with normal turgor. Normal color with no rashes, no lesions, and no evidence of cellulitis. Psych: Awake, alert, with orientation to person, place and time. Behavior, mood, and affect are within normal limits. 13:22 Neuro: Patient slow to respond but no focal deficits noted. Vital signs are normal., 13:36 ECG was reviewed by the Attending Physician. EKG demonstrates normal sinus rhythm at 65 sp3 bpm with normal intervals, normal QRS, normal axis and nonspecific diffuse ST/T changes without evidence of acute ischemia. Vital Signs: 12:44 BP 124 / 74; Pulse 73; Resp 16; Temp 99.1; Pulse Ox 97% on R/A; Pain 0/10; dd2 13:28 BP 123 / 73; Pulse 66; Resp 16; Temp 98.7; Pulse Ox 99% on R/A; Pain 0/10; dd2 14:22 BP 124 / 78; Pulse 86; Resp 16; Temp 98.4; Pulse Ox 100% on R/A; dd2 12:44 Pain Scale: Adult dd2 13:28 Pain Scale: Adult dd2 Allie Coma Score: 13:10 Eye Response: spontaneous(4). Motor Response: obeys commands(6). Verbal Response: dd2 oriented(5). Total: 15. MDM: 12:42 Medical Screening Exam initiated sp3 13:24 Data reviewed: vital signs, nurses notes, EMS record, EKG, radiologic studies. ED sp3 course: 30-year-old male with no past medical history now with heat exhaustion type symptoms. Differential diagnosis includes heat exhaustion, heatstroke, electrolyte abnormality, dehydration, or other metabolic process. I am at highly suspicious of intracranial pathology, TIA/CVA spectrum, acute coronary syndrome, sepsis, shock any other critical process. Workup will include general labs, EKG, CK, IV fluids, and supportive care as needed. Probable discharge home once improved.. 14:03 ED course: Patient much improved after fluids. Will discharge him home after current sp3 lactated Ringer's is complete and he takes all of his p.o. potassium.. 06/10 12:43 Order name: Basic Metabolic Panel; Complete Time: 13:35 sp3 06/10 12:43 Order name: CBC with Diff; Complete Time: 13:35 sp3 06/10 12:43 Order name: LFT's; Complete Time: 13:35 sp3 06/10 12:43 Order name: Magnesium; Complete Time: 13:35 sp3 06/10 12:43 Order name: Troponin HS; Complete Time: 13:35 sp3 06/10 12:43 Order name: CK; Complete Time: 13:35 sp3 06/10 12:43 Order name: EKG; Complete Time: 12:44 sp3 06/10 12:43 Order name: Cardiac monitoring; Complete Time: 13:07 sp3 06/10 12:43 Order name: EKG - Nurse/Tech; Complete Time: 13:07 sp3 06/10 12:43 Order name: IV Saline Lock; Complete Time: 13:07 sp3 06/10 12:43 Order name: Labs collected and sent; Complete Time: 13:07 sp3 06/10 12:43 Order name: O2 Per Protocol; Complete Time: 13:07 sp3 06/10 12:43 Order name: O2 Sat Monitoring; Complete Time: 13:07 sp3 Administered Medications: 13:17 Drug: Ringers - Lactated Ringers Solution IV 1000 ml IV at bolus bolus; to be given as dd2 a bolus over 60 minutes Route: IV; Rate: bolus; Site: left forearm; 14:31 Follow up: IV Status: Completed infusion; IV Intake: 1000ml ap3 13:51 Drug: Potassium PO Effervescent Tablet 50 mEq PO once; dissolve in 4 ounces of water or dd2 juice Route: PO; 14:22 Follow up: Response: No adverse reaction dd2 Disposition Summary: 06/10/25 14:04 Discharge Ordered Notes: Location: Home sp3 Condition: Stable(06/10/25 14:04) sp3 Diagnosis - Heat exhaustion, dehydration, hypokalemia, near syncope sp3 Followup: sp3 - With: Private Physician - When: Upon discharge from the Emergency Department - Reason: Continuance of care Discharge Instructions: - Discharge Summary Sheet sp3 - Heat Exhaustion sp3 - Preventing Heat Exhaustion, Adult sp3 Forms: - Medication Reconciliation Form sp3 - Antibiotic Education sp3 - Prescription Opioid Use sp3 - Patient Portal Instructions sp3 - Leadership Thank You Letter sp3 Signatures: Dispatcher [employer] Vaishnavi Rosales MD MD sp3 PABLO GONZALEZ RN RN dd2 Maggy Mcbride RN ap3 Corrections: (The following items were deleted from the chart) 14:04 14:04 Fair sp3 sp3
[2025-06-10 14:44] VITALS: BP 124/78; TEMP 98.4; O2SAT 100
== END 2025-06-10 14:31 | disposition home or self-care (01) ==
LOC: ER 12:41
DX: X30.XXXA Exposure to excessive natural heat, initial encounter (principal); Y92.89 Other specified places as the place of occurrence of the external cause; Y99.0 Civilian activity done for income or pay; E86.0 Dehydration; R55 Syncope and collapse; E87.6 Hypokalemia
CPT/HCPCS: 36415; 80048; 80076; 82550; 83735; 84484; 85025; 93005; 96365; 99285; J7120